=== PATIENT | male | born 1940 | race Caucasian/White ===

== ENCOUNTER → 2024-08-12 08:47 | Outpatient (REF) | payer MEDICARE, BC, SELFPAY | LOC: RAD 08:47 | PROVIDERS: ATTENDING PHYSICIAN Family Medicine | DX: J44.9 Chronic obstructive pulmonary disease, unspecified (principal); R63.4 Abnormal weight loss | CPT/HCPCS: 71046 ==

== ENCOUNTER → 2024-09-29 14:43 | Outpatient (REF) | payer MEDICARE, BC, SELFPAY | LOC: HWRAD 14:43 | PROVIDERS: ATTENDING PHYSICIAN Family Medicine | DX: R10.11 Right upper quadrant pain (principal); R74.8 Abnormal levels of other serum enzymes | CPT/HCPCS: 74177; Q9967 ==

== ENCOUNTER 2024-09-30 19:03 | Inpatient (IN) | payer MEDICARE, BC, SELFPAY ==
[2024-09-30] VITALS (15 sets, daily range): BP systolic 128–156; BP diastolic 75–95; PULSE 4–78; BMI 21.9
[2024-09-30] MEDS: DECADRON 10 MG IV (14:34)
[2024-09-30] MEDS: NSS 500 IV (14:34)
[2024-09-30] MEDS: DUONEB 3 ML INH ×3 (14:34→22:44)
--- NOTE | 2024-09-30 14:52 | ED.GENMED ---
History of Present Illness
General
Chief Complaint: Abdominal Pain
Source: patient
Exam Limitations: none
Time Seen by Provider: 09/30/24 14:05
Nursing documentation reviewed up to this point in time: agreed with
History of Present Illness
History of Present Illness:
84-year-old male past medical history of CAD hyperlipidemia hypertension presenting to the emergency department today with concerns of shortness of breath epigastric pain rating to his back as well as feeling very weak and having blood in his cough
over the past few days. Had an outpatient CT scan due to the upper abdominal pain through his primary care doctor yesterday that showed potential contracted gallbladder though may be due to recent injection. Also had possible groundglass findings
consistent with pneumonia. He denies any specific fevers. He has no some wheezing does of a history of COPD.
Past History
Past History
ED Past Medical History: CAD
ED Past Surgical History: None
Review of Systems
Review of Systems
Allergies reviewed?: Yes
All Other Systems: ROS reviewed and negative except as documented in HPI and ROS
Phy Exam
Physical Exam
Physical Exam:
GENERAL: Alert , in no apparent distress
EYE: pupils equal and reactive
NECK: Supple, no significant adenopathy.
ENT: o/p clr, mmm.
CARDIAC: Regular rate and rhythm .
LUNGS: Diffuse inspiratory and expiratory wheezing
ABDOMEN: Soft, without focal tenderness, no r/g, no cvat
NEUROLOGICAL: Alert and oriented, no focal neuro deficits
SKIN: Warm and dry, skin intact.
MUSCULOSKELETAL: No edema, well perfused.
PSYCH: Normal and appropriate interaction.
Course
Orders/Labs/Results
Orders:
Orders
09/30/24 13:42
EKG [Electrocardiogram (*1)] Urgent
Reason for Study: Shortness of Breath
EKG- Treatment ONCE
09/30/24 14:11
0.9% Sodium Chloride 500 ml [Nss] 500 ml IV BOLUS
Dexamethasone Sod Phosphate [Decadron] 10 mg IV NOW STA
Ipratropium/Albuterol Sulfate [Duoneb] 3 ml INH R NOW STA
09/30/24 14:20
US Abdomen Complete/Upper Urgent
Comment:
Reason For Exam: ruq pain
09/30/24 14:26
Complete Blood Count/With Diff Urgent
Lactic Acid Q4H
Comment: CANCEL 2nd LACTIC ACID IF 1st LACTIC ACID IS LESS THAN 2
09/30/24 14:55
Comprehensive Metabolic Panel Urgent
NT-proBNP Urgent
Troponin I Urgent
09/30/24 14:56
COVID-19 Antigen Urgent
Source: Nasal Swab
Influenza A+B Rapid Molecular Urgent
TELMA Source: Nasal Swab
Specimen Description:
09/30/24 15:43
Chest [CR Chest - 2 Views ] Urgent
Comment:
Reason For Exam: sob
09/30/24 17:01
Azithromycin 500 mg/250 ml [Zithromax Infusion] 500 mg in 250 ml IV NOW
CefTRIAXone [Rocephin] 2,000 mg IV NOW STA
Furosemide [Lasix] 40 mg IV NOW STA
09/30/24 17:06
EKG [Electrocardiogram (*1)] Urgent
Reason for Study: Chest Pain
EKG- Treatment ONCE
09/30/24 17:08
Troponin I Urgent
09/30/24 17:34
Ipratropium/Albuterol Sulfate [Duoneb] 3 ml INH R NOW ONE
09/30/24 17:55
Acetaminophen 1000MG/100Ml [Ofirmev] 1,000 mg in 100 ml IV ONCE
Acetaminophen IV Indication:: No CT & No Enteral Access
Abnormal Lab Results
09/30/24 09/30/24 09/30/24
14:26 14:55 17:08
WBC 16.3 H 10^3/uL
(4.8-10.8)
RBC 3.15 L 10^6/uL
(4.70-6.10)
Hgb 10.6 L g/dL
(13.0-18.0)
Hct 31.0 L %
(39.0-52.0)
MCV 98.4 H fL
(80.0-94.0)
MCH 33.7 H pg
(27.0-31.0)
Abs Immat Gran (auto) 0.2 H 10^3/uL
(0-0.05)
Absolute Neuts (auto) 13.4 H 10^3/uL
(1.4-6.5)
Absolute Monos (auto) 1.1 H 10^3/uL
(0.1-0.6)
Immature Gran % 1.0 H %
(0-0.5)
Neutrophils % 82.1 H %
(42.2-75.2)
Lymphocytes % 8.8 L %
(20.5-51.1)
Sodium 134 L mmol/L
(135-145)
Carbon Dioxide 19 L mmol/L
(22-30)
BUN 69 H mg/dl
(9-20)
Creatinine 2.2 H mg/dL
(0.7-1.3)
Glucose 105 H mg/dl
(70-99)
AST 231 H U/L
(17-59)
ALT 309 H U/L
(0-50)
Alkaline Phosphatase 308 H U/L
(38-126)
Troponin I 0.061 H* ng/ml 0.062 H* ng/ml
Total Protein 5.8 L g/dl
(6.3-8.2)
Albumin 3.2 L g/dl
(3.5-5.0)
09/30/24 14:26
09/30/24 14:55
Vital Signs
Initial and Last Documented VS:
Initial Vital Signs
Temp Pulse Resp BP Pulse Ox
97.5 F 56 18 128/79 94
09/30/24 13:37 09/30/24 13:37 09/30/24 13:37 09/30/24 13:37 09/30/24 13:37
Last Documented Vital Signs
Temp Pulse Resp BP Pulse Ox
98.5 F 77 27 141/84 96
09/30/24 14:41 09/30/24 17:34 09/30/24 17:34 09/30/24 17:34 09/30/24 17:34
MDM/Problems Addressed
MDM/Problems Addressed:
84-year-old male presenting to the emergency department today with concerns of shortness of breath wheezing upper abdominal pain rating to his back with some blood in his cough over the past few days. Saw his primary care doctor yesterday had an
outpatient CT scan of the abdomen pelvis that showed some contraction of the gallbladder. There were also concern of some elevated liver function test and sent him to the ER. Here he does have diffuse inspiratory expiratory wheezing. More
concerning for potential COPD exacerbation. Patient started on steroid and nebulizer. Labs obtained that showed elevated white count of 16.3 chest x-ray performed that showed consolidation to the left side consistent with pneumonia patient started
on ceftriaxone and azithromycin for community-acquired pneumonia. Additionally BNP significantly elevated to greater than 27,000. He had some increased pulmonary vascular markings. Was started on Lasix. Otherwise maintaining saturations in the
mid 90s at rest here. Admitted for further treatment and monitoring.
*Critical Care Note
Total Time (30-74mins, 75-104mins- exclusive of procedures): Not Applicable
ED Attending Note
-
Portions of this chart may have been created with voice recognition software.� Occasional wrong word or��sound alike� substitutions may have occurred due to the inherent limitations of voice recognition software.
Discharge Plan
Departure
Patient Disposition: Admit
Date of Disposition: 09/30/24
Time of Disposition: 17:53
Admit to: IMU
Admit to doctor: Josiane
Presentation/result/management discussed w/ accepting MD/DO: Hospitalist
Patient with high blood pressure during this ER visit?: No
Condition: Fair
Covid-19: Not Applicable
Discharge Problem:
Pneumonia, Acute exacerbation of CHF (congestive heart failure)
Prescriptions:
No Action
acetaminophen 325 mg Tablet
650 mg PO HSPRN PRN (Reason: mild pain )
atorvastatin 20 mg Tablet
20 mg PO DAILY
clopidogrel 75 mg Tablet
75 mg PO DAILY
amlodipine 5 mg Tablet
5 mg PO DAILY
sulfamethoxazole-trimethoprim [Bactrim DS] 800-160 mg Tablet
1 tab PO MOWEFR
calcium carbonate [Calcium 500] 500 mg calcium (1,250 mg) Tablet
500 mg PO DAILY
Referrals:
Christian Gabriel MD [Family Provider] -
Interventions
Interventions:
*Risk Screen - Suicide Last Done: 09/30/24 13:37
*General Assessment Last Done: 09/30/24 14:41
*Neglect/Abuse Screening Last Done: 09/30/24 14:41
ED- Fall Risk Assessment Last Done: 09/30/24 14:41
*ED COVID-19 Vaccine History Last Done: 09/30/24 14:41
GK-Ifhshm-Rcirtenjwa Assessment Last Done: 09/30/24 14:41
Discharge Date and Time
Print Language: DANISH
[2024-09-30 15:07] LABS: Lactic Acid 1.3 mmol/L (0.7-2.0)
[2024-09-30 15:14] LABS: % Basophils 0.3 % (0-2); % Eosinophils 1.1 % (0-6); % Lymphocytes 8.8 % (20.5-51.1); % Monocytes 6.7 % (1.7-9.3); % Neutrophils 82.1 % (42.2-75.2); Absolute Basophils 0.1 10^3/uL (0-0.2); Absolute Eosinophils 0.2 10^3/uL (0-0.7); Absolute Immature Granulocytes 0.2 10^3/uL (0-0.05); Absolute Lymphocytes 1.4 10^3/uL (1.2-3.4); Absolute Monocytes 1.1 10^3/uL (0.1-0.6); Absolute Neutrophils 13.4 10^3/uL (1.4-6.5); Hemoglobin 10.6 g/dL (13.0-18.0); Mean Corp Hgb Conc. 34.2 g/dL (33.0-37.0); Mean Corpuscular Hgb 33.7 pg (27.0-31.0); Mean Corpuscular Volume 98.4 fL (80.0-94.0); Mean Platelet Volume 10.3 fL (7.4-10.4); Nucleated Red Blood Cells % 0 % (-); Platelet Count 258 10^3/uL (130-400); Red Blood Cell Count 3.15 10^6/uL (4.70-6.10); Red Cell Dist. Width 13.3 % (11.5-14.5); White Blood Cell Count 16.3 10^3/uL (4.8-10.8)
--- NOTE | 2024-09-30 15:19 | EDRN ---
this RN noticed that the pts Sp02 on 2L NC was 92%, this RN titrated 02 up to 4L NC and notified the provider, Sp02 now 96%, will continue to monitor the pt closely
[2024-09-30 15:25] LABS: ALT (SGPT) 309 U/L (0-50); AST (SGOT) 231 U/L (17-59); Albumin 3.2 g/dl (3.5-5.0); Alkaline Phosphatase 308 U/L (38-126); Blood Urea Nitrogen 69 mg/dl (9-20); Calcium 8.8 mg/dl (8.4-10.2); Carbon Dioxide 19 mmol/L (22-30); Chloride 101 mmol/L (98-107); Estimated Creatinine Clearance 22 ml/min; Glucose 105 mg/dl (70-99); Potassium 4.5 mmol/L (3.5-5.1); Sodium 134 mmol/L (135-145); Total Bilirubin 1.2 mg/dl (0.2-1.3); Total Protein 5.8 g/dl (6.3-8.2); eGFR 28.81
[2024-09-30 15:26] LABS: COVID-19 Antigen Negative (Negative)
[2024-09-30 15:35] LABS: NT-proBNP > 27000 pg/ml; Troponin I 0.061 ng/ml
--- NOTE | 2024-09-30 15:36 | EDRN ---
Troponin came back elevated, provider notified
[2024-09-30] MEDS: LASIX 40 MG IV (17:11)
[2024-09-30] MEDS: ROCEPHIN 2000 MG IV (17:12)
[2024-09-30] MEDS: ZITHROMAX INFUSION 250 IV (17:12)
[2024-09-30 17:48] LABS: Troponin I 0.062 ng/ml
[2024-09-30] MEDS: OFIRMEV 100 IV (18:00)
--- NOTE | 2024-09-30 18:03 | HPS.HSE ---
Family Physician
-
Family Physician: Christian Gabriel
Chief Complaint
-
shortness of breath
History of Present Illness
84 y/o male with SOB and cough. Also bloody sputum . Patient also had upper abdominal pain had a CT as outpatient which showed contracted gallbladder and also findings consistent with pneumonia.
Medical History
Past Medical History
Past Medical History: Reports Other
Additional Past Medical History:
Coronary artery disease, hyperlipidemia, hypertension, PVD
Past Surgical History: Reports Other
Additional Past Surgical History:
CABG
Social History
Tobacco: Smoker
Alcohol: None
Drug: None
Personal:
Living: With Family
Family History
Family History: Not pertinent
Allergies / Home Medications
Allergies reflects when Allergies were last updated in [facility].
Home Medications with original date entered in [facility]
Allergy/Medication List:
Allergies
Allergy/AdvReac Type Severity Reaction Status Date / Time
No Known Allergies Allergy Verified 09/30/24 13:37
Home Medications
acetaminophen 325 mg tablet 650 mg PO HSPRN PRN mild pain 09/30/24
amlodipine 5 mg tablet 5 mg PO DAILY Blood Pressure 09/30/24
atorvastatin 20 mg tablet 20 mg PO DAILY High Cholesterol 09/30/24
calcium carbonate 500 mg PO DAILY Supplement 09/30/24
clopidogrel 75 mg tablet 75 mg PO DAILY Blood Clot Prevention/Tx 09/30/24
sulfamethoxazole 800 mg-trimethoprim 160 mg tablet (Bactrim DS) 1 tab PO MOWEFR infection prophylaxis 09/30/24
Review of Systems
-
A 12 point ROS was completed and negative except as noted: Yes
Respiratory: Reports Cough and Trouble Breathing
Abdomen/GI: Reports Abdominal Pain and Nausea
Physical Exam
Vital Signs
Vital Signs
Temp Pulse Resp BP Pulse Ox
98.5 F 77 27 141/84 96
09/30/24 14:41 09/30/24 17:34 09/30/24 17:34 09/30/24 17:34 09/30/24 17:34
Physical Exam
General: Respiratory Distress
Respiratory: Wheezes
Cardiac: S1/S2 and Regular Rhythm
GI: Soft, Non Tender and Normal Bowel Sounds
Neuro: Awake, Alert and Nonfocal/grossly intact
Psych: Intact Judgment/Insight
Laboratory Results
-
09/30/24 14:26
09/30/24 14:55
Laboratory Results
Lactic Acid Cancelled 09/30/24 18:15
Total Bilirubin 1.2 mg/dl (0.2-1.3) 09/30/24 14:55
AST 231 U/L (17-59) H 09/30/24 14:55
ALT 309 U/L (0-50) H 09/30/24 14:55
Alkaline Phosphatase 308 U/L (38-126) H 09/30/24 14:55
Troponin I 0.062 ng/ml H* 09/30/24 17:08
Data Reviewed
-
Medical Tests (Nuc Med, Echo, EKG etc): Image Personally Visualized and interpreted (Sinus rhythm with sinus arrhythmia. Nonspecific ST-T changes. QTc 474.)
Impression/Plan
-
IMPRESSION/PLAN:
CT scan of the abdomen and pelvis with IV contrast 09/29/2024-contracted gallbladder with wall enhancement could be due to recent ingestion. Pathology cannot be excluded. Moderate right and small left pleural effusion. Moderate bibasilar and
lingular groundglass densities concerning for pneumonia. ILD not excluded. Findings suggesting bilateral benign adrenal hyperplasia. Bilateral renal cyst. Complex cyst left kidney outpatient MRI recommended. Moderate atherosclerotic vascular
disease. Tortuous abdominal aorta. Bilobed infrarenal AAA 4.1 cm. Diverticulosis. Large Bowel containing left scrotal hernia. Mild prostatic hypertrophy.
09/30/2024-ultrasound of the abdomen-mild gallbladder wall thickening secondary to gallbladder contraction. No evidence of cholelithiasis or bile duct dilatation. Bilateral renal cyst.
Chest x-ray reviewed by me-left lung pneumonia
# Acute hypoxic respiratory failure
Multifactorial
Pneumonia/acute CHF/acute bronchitis/COPD exacerbation
Admit to stepdown
Sputum culture
Speech evaluation
Possible CHF with elevated proBNP, got a dose of Lasix. More Lasix in the morning after evaluation of BMP
Get echo
Mildly elevated troponin-follow
COVID serology negative
Will treat with IV steroids
Zosyn and Zithromax
Smoking cessation counseling
Aspiration precautions
Mucolytic's
# Epigastric pain with elevated LFTs-check HIDA scan. n.p.o. . Surgery consultation according to the HIDA scan tomorrow . Zosyn. Hepatic congestion also needs to be considered and ruled out.
# Acute kidney injury on CKD stage III-possible cardiorenal. Check echo. Hold Bactrim follow creatinine. Bladder scan with large prostate.
# Coronary artery disease-H/O CABG Hold Plavix, statin
# Hypertension-Hold amlodipine
# Anemia-check iron studies
# Hyperlipidemia/atherosclerosis-Hold atorvastatin
# Peripheral vascular disease with low ABIs, 100% left common carotid artery occlusion 100% left internal carotid artery occlusion-continue Plavix and statin
# Renal cyst-outpatient MRI
# 4.1 cm infrarenal AAA
# Diverticulosis
# Enlarged prostate-watch for an retention. Bladder scan
# Active smoker-cessation counseling
# Large bowel containing left scrotal hernia
# DVT prophylaxis-BEVERLEY
# CODE STATUS-DNR per D/W and daughter .
Discussed with respiratory therapy at bedside
Discussed with ER
Spoke to and daughter on the phone and updated. Reviewed that patient is very sick with multiple medical problems. CODE STATUS addressed and they both confirmed DNR status.
Time spent over 75 min
--- NOTE | 2024-09-30 18:08 | EDRN ---
Ofirmev IV hung and running for the patient per their request for pain, Ed Aroldo KONG at the pts bedside discussing with the pt and the pts family why the provider, Kevin KONG does not want to give the pt IV narcotics, per the provider respiratory
was called to place the pt on Bipap for increases WOB
--- NOTE | 2024-09-30 18:21 | EDRN ---
respiratory currently at the pts bedside placing the pt on Bipap, hospitalist currently at the pts bedside as well
--- NOTE | 2024-09-30 18:33 | EDRN ---
the pt is currently on Bipap 25/03 8L Sp02 94%
[2024-09-30 19:37] LABS: Vitamin B12 912 pg/ml (239-931)
[2024-09-30] MEDS: DILAUDID 0.25 MG IV (21:29)
[2024-09-30] MEDS: PULMICORT 0.5 MG INH (22:44)
[2024-09-30] MEDS: DECADRON 4 MG IV (22:45)
[2024-09-30] MEDS: MUCINEX 600 MG PO (22:45)
[2024-09-30] MEDS: HEPARIN 5000 UNITS SC (23:34)
[2024-09-30] MEDS: ZOSYN 50 IV (23:34)
[2024-10-01] VITALS (15 sets, daily range): BP systolic 104–143; BP diastolic 61–90; PULSE 4–77; BMI 22.8
[2024-10-01 00:48] LABS: Troponin I 0.067 ng/ml
--- NOTE | 2024-10-01 01:54 | PTCARENOTE ---
New afib overnight, controlled in 70's. confirmed with ekg. Cardiology already consulted. BALANCE ASSEMBLER aware.
--- NOTE | 2024-10-01 01:55 | PTCARENOTE ---
Admitted pt overnight. aaox3 but forgetful & NEWTOK. and family at bedside during admission. SR/SA and new afib overnight, high pvc's. Denies CP. Arrived on bipap and continues to be on it overnight. Bedrest. Large inguinal hernia. Trops have not
peaked yet. Denies any pain in abdomen/back like he previously stated in ed. no other issues, will continue to monitor.
[2024-10-01] MEDS: DECADRON 4 MG IV ×3 (05:41→21:00)
[2024-10-01] MEDS: ZOSYN 50 IV ×4 (05:41→23:26)
[2024-10-01 06:19] LABS: Hematocrit 30.1 % (39.0-52.0); Hemoglobin 10.6 g/dL (13.0-18.0); Mean Corp Hgb Conc. 35.2 g/dL (33.0-37.0); Mean Corpuscular Hgb 33.7 pg (27.0-31.0); Mean Corpuscular Volume 95.6 fL (80.0-94.0); Mean Platelet Volume 10.7 fL (7.4-10.4); Platelet Count 249 10^3/uL (130-400); Red Blood Cell Count 3.15 10^6/uL (4.70-6.10); Red Cell Dist. Width 13.1 % (11.5-14.5); White Blood Cell Count 12.9 10^3/uL (4.8-10.8)
[2024-10-01 06:33] LABS: ALT (SGPT) 242 U/L (0-50); AST (SGOT) 111 U/L (17-59); Albumin 2.9 g/dl (3.5-5.0); Alkaline Phosphatase 276 U/L (38-126); Blood Urea Nitrogen 68 mg/dl (9-20); Calcium 8.3 mg/dl (8.4-10.2); Carbon Dioxide 16 mmol/L (22-30); Chloride 106 mmol/L (98-107); Direct Bilirubin 0.5 mg/dl (0.0-0.4); Estimated Creatinine Clearance 21 ml/min; Glucose 112 mg/dl (70-99); Iron 60 ug/dl (49-181); Magnesium 2.2 mg/dl (1.6-2.3); Potassium 4.4 mmol/L (3.5-5.1); Sodium 139 mmol/L (135-145); Total Bilirubin 0.8 mg/dl (0.2-1.3); Total Protein 5.5 g/dl (6.3-8.2); eGFR 25.96
[2024-10-01 06:42] LABS: Percent Saturation 43 % (20-50); Total Iron Binding Capacity 139 ug/dl (261-462)
[2024-10-01 06:49] LABS: Troponin I 0.059 ng/ml
[2024-10-01 07:03] LABS: TSH Reflex To Free T4 0.63 uIU/ml (0.47-4.68)
[2024-10-01] MEDS: HEPARIN 5000 UNITS SC ×3 (07:30→23:27)
[2024-10-01] MEDS: DUONEB 3 ML INH ×4 (07:36→19:42)
[2024-10-01] MEDS: PULMICORT 0.5 MG INH ×2 (07:36→19:42)
--- NOTE | 2024-10-01 08:55 | W.PN.HOSP.TC ---
Today's Communication/Plan
-
HIDA scan
Echo
Continue antibiotics
Continue steroids
Will decide on Lasix once echo is done
Oxygen support
Smoking cessation counseling
Aspiration precautions
Speech eval
Assessment / Plan
Assessment / Plan
CT scan of the abdomen and pelvis with IV contrast 09/29/2024-contracted gallbladder with wall enhancement could be due to recent ingestion. Pathology cannot be excluded. Moderate right and small left pleural effusion. Moderate bibasilar and
lingular groundglass densities concerning for pneumonia. ILD not excluded. Findings suggesting bilateral benign adrenal hyperplasia. Bilateral renal cyst. Complex cyst left kidney outpatient MRI recommended. Moderate atherosclerotic vascular
disease. Tortuous abdominal aorta. Bilobed infrarenal AAA 4.1 cm. Diverticulosis. Large Bowel containing left scrotal hernia. Mild prostatic hypertrophy.
09/30/2024-ultrasound of the abdomen-mild gallbladder wall thickening secondary to gallbladder contraction. No evidence of cholelithiasis or bile duct dilatation. Bilateral renal cyst.
Chest x-ray reviewed by me-left lung pneumonia
Feeling better.
CVS: S1-S2 irregular
Chest: B/L wheezes
Abdomen: Soft, No RUQ [id number] now, Bowel sounds present
Extremities: No edema
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
# Acute hypoxic respiratory failure
Multifactorial
Off BIPAP this am- on 3 L NC O2
1)Pneumonia- NOS- Aspiration vs CAP
Sputum culture
Speech evaluation
2) Acute CHF (Type unknown)with elevated proBNP, got a dose of Lasix. More Lasix in the morning after evaluation of BMP
Get echo
Mildly elevated troponin-follow
GDMT after ECHO when able to
Daily weights. Intake output charting
Cards eval
3)Acute bronchitis/COPD exacerbation
COVID serology negative
Will treat with IV steroids
Zosyn and Zithromax
Smoking cessation counseling
Aspiration precautions
Mucolytic's
Pulm eval
# Arrhythmias . ? Afib- Cards eval.
# Epigastric pain with elevated LFTs-check HIDA scan. n.p.o. . Surgery consultation according to the HIDA scan tomorrow . Zosyn. Hepatic congestion also needs to be considered and ruled out. Hold Plavix in case he needs surgery, restart once
decided. Use ASA instead for now
# Acute kidney injury on CKD stage III-possible cardiorenal. Check echo. Hold Bactrim follow creatinine. Bladder scan with large prostate.
# Coronary artery disease-H/O CABG Hold Plavix, continue statin. Hold Plavix in case he needs surgery, restart once decided. Use ASA instead for now
# Hypertension-Hold amlodipine
# Anemia- No BERT
# Hyperlipidemia/atherosclerosis-Hold atorvastatin
# Peripheral vascular disease with low ABIs, 100% left common carotid artery occlusion 100% left internal carotid artery occlusion-continue statin.Hold Plavix in case he needs surgery, restart once decided. Use ASA instead for now
# Renal cyst-outpatient MRI
# 4.1 cm infrarenal AAA ( Son awre)
# Diverticulosis
# Enlarged prostate-watch for any retention. Bladder scan ordered
# Active smoker-cessation counseling
# Hypoalbuminemia
# Large bowel containing left scrotal hernia
# DVT prophylaxis-BEVERLEY
# CODE STATUS-DNR per D/W and daughter .
Discussed with RN at bedside
D/W Son and updated.
time spent 54 min
Anticipated Discharge: > 48 hours
Subjective/Interval History
-
Date of Service: October 01, 2024
Objective Data
-
Labs:
Laboratory Results
10/01/24
06:08
WBC 12.9 H
Hgb 10.6 L
Hct 30.1 L
Plt Count 249
Sodium 139
Potassium 4.4
Chloride 106
Carbon Dioxide 16 L
BUN 68 H
Creatinine 2.4 H
Glucose 112 H
Calcium 8.3 L
Total Bilirubin 0.8
AST 111 H
ALT 242 H
Alkaline Phosphatase 276 H
Vital Signs:
Vital Signs
Temp Pulse Resp BP Pulse Ox
97.5 F 77 19 120/80 95
10/01/24 04:52 10/01/24 08:00 10/01/24 08:00 10/01/24 06:00 10/01/24 08:00
I&O
09/30/24 10/01/24 10/02/24
06:59 06:59 06:59
Output Total 100 / 100
Balance -100 / -100
--- NOTE | 2024-10-01 09:47 | CON.CAR ---
Consultation
Consultation Request
Date/Time Consultation Requested: Sep 30 2024
Date/Time Consultation Performed: Oct 01 2024
Requesting Provider: Hospitalist
Performing Provider: Arvind Langley
Reason for Consultation: HF
Medical History
-
Chief Complaint: RUQ pain
History of Present Illness:
84-year-old male with past medical history of CAD s.p CABG, peripheral arterial disease, dyslipidemia, and hypertension who is here for right upper quadrant pain. He tells me that over the last couple days he has had significant right upper
quadrant pain that eventually caused him to come to the emergency room. Additionally, he has had some mild shortness of breath and was found to be hypoxic requiring BiPAP in the emergency room. He was given some IV Lasix and has diuresed well. We
are being consulted for concern for heart failure. He did have a CT scan as an outpatient and was found to have contracted gallbladder as well as pneumonia. He also has elevated LFTs and his creatinine is elevated.
Past Medical History
Past Medical History: Other (PAD HTN Dyslipidemia CAD)
Past Surgical History: Other (cabg)
Social History
Tobacco: Smoker
Personal:
Living: With Family
Employment: Retired
Family History
Family History: Reviewed & Not Pertinent
Allergies / Home Medications
Allergy/AdvReac Type Severity Reaction Status Date / Time
No Known Allergies Allergy Verified 09/30/24 13:37
�Medication �Instructions �Recorded �Confirmed �Type
acetaminophen 325 mg tablet 650 mg PO HSPRN PRN mild pain 09/30/24 09/30/24 History
amlodipine 5 mg tablet 5 mg PO DAILY Blood Pressure 09/30/24 09/30/24 History
atorvastatin 20 mg tablet 20 mg PO DAILY High Cholesterol 09/30/24 09/30/24 History
calcium carbonate 500 mg PO DAILY Supplement 09/30/24 09/30/24 History
clopidogrel 75 mg tablet 75 mg PO DAILY Blood Clot 09/30/24 09/30/24 History
Prevention/Tx
sulfamethoxazole 800 1 tab PO MOWEFR infection 09/30/24 09/30/24 History
mg-trimethoprim 160 mg tablet prophylaxis
(Bactrim DS)
Review of Systems
-
All other systems: Negative unless noted
Physical Exam
Vital Signs
Temp Pulse Resp BP Pulse Ox
97.5 F 77 19 120/80 95
10/01/24 04:52 10/01/24 08:00 10/01/24 08:00 10/01/24 06:00 10/01/24 08:00
Lab Results
10/01/24 06:08
10/01/24 06:08
Troponin I 0.059 ng/ml H* 10/01/24 06:08
Hsp-W-Znthjrkqvty Pept > 92127 pg/ml 09/30/24 14:55
Physical Exam
General: No Apparent Distress and Comfortable
HEENT: Normocephalic
Respiratory: Wheezes and Crackles
Cardiac: Regular Rhythm
GI: Soft
Musculoskeletal: Edema (trace)
Skin: Warm and Dry
Neuro: AO x 3
Psych: Calm
Impression / Plan
-
84-year-old male with past medical history of CAD status post CABG, dyslipidemia, hypertension, peripheral arterial disease who is here with concern for possible cholecystitis and pneumonia/heart failure. He does not appear overtly volume
overloaded. He likely could use 1 more dose of diuretic.
Dr Avila patient.
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
-1 dose IV Lasix today
-Update echocardiogram
-GDMT likely limited by kidney function we will wait until echocardiogram is completed
CAD s.p CABG Elevated troponin
- likely nonischemic myocardial injury stop trending
- cont statin, holding plavix possible procedure
HTN
- stable
Dyslipidemia
- cont statin
PNA w/ hypoxic respiratory failure
- per primary
Elevated LFTs
- HIDA scan
PAD
- holding plavix
Smoker
- encouraged cessation
Data Reviewed
-
EKG: Tracing Personally Visualized and interpreted (sr)
Medical Tests (Nuc Med, Echo etc): Report Reviewed by me
Labs: Labs Reviewed by me
--- NOTE | 2024-10-01 10:51 | PTCARENOTE ---
1037 HIDA SCAN pre-medication vital signs 97.6, 81, 20 Bp 139/84. Morphine 2mg IV given as per order at 1040. Post-medication vital signs at 1042 HR 76, RR 19, Bp 138/80. Patient denies complaints.
--- NOTE | 2024-10-01 11:06 | CON.PUL ---
Consultation
Consultation Request
Date/Time Consultation Requested: 10/01/24
Date/Time Consultation Performed: 10/01/24
Performing Provider: Edgardo
Reason for Consultation: Hypoxia
Medical History
-
History of Present Illness:
Patient is an 84-year-old male with past medical history of CAD, HTN, HLD presenting to ER with shortness of breath, cough w/ bloody sputum, epigastric pain rating to his back and weakness over the past several days. Had an outpatient CT scan
with suspected contracted gallbladder, ground glass opacities suggesting pneumonia. On arrival to ER, noted to have WBC 16.3, creat 2.4, proBNP >27,000. Admitted for CHF exacerbation, with potential comorbid PNA.
Was never told in the past he has lung disease. Current smoker, up to 1PPD since he was 11 years old. Has cut down to 1/2 PPD. Denies history of lung disease in family.
Never seen by manager e learning in past.
Past Medical History
Past Medical History: Other (see list below)
Social History
Tobacco: Smoker
Alcohol: None
Drug: None
Family History
Family History: Reviewed & Not Pertinent
Allergies / Home Medications
Allergies
Allergy/AdvReac Type Severity Reaction Status Date / Time
No Known Allergies Allergy Verified 09/30/24 13:37
Home Medications
�Medication �Instructions �Recorded �Confirmed �Last Taken �Type
acetaminophen 325 mg tablet 650 mg PO HSPRN PRN mild pain 09/30/24 09/30/24 09/29/24 History
amlodipine 5 mg tablet 5 mg PO DAILY Blood Pressure 09/30/24 09/30/24 09/30/24 History
atorvastatin 20 mg tablet 20 mg PO DAILY High Cholesterol 09/30/24 09/30/24 09/30/24 History
calcium carbonate 500 mg PO DAILY Supplement 09/30/24 09/30/24 09/29/24 History
clopidogrel 75 mg tablet 75 mg PO DAILY Blood Clot 09/30/24 09/30/24 09/30/24 History
Prevention/Tx
sulfamethoxazole 800 1 tab PO MOWEFR infection 09/30/24 09/30/24 09/29/24 History
mg-trimethoprim 160 mg tablet prophylaxis
(Bactrim DS)
Review of Systems
-
History Source: Patient
All other systems: Negative unless noted
Vitals / Labs / Diagnostic Testing
Vital Signs
Temp Pulse Resp BP Pulse Ox
97.5 F 76 18 138/80 96
10/01/24 04:52 10/01/24 10:45 10/01/24 10:45 10/01/24 10:45 10/01/24 10:45
Lab Data
10/01/24 06:08
10/01/24 06:08
Microbiology
09/30/24 14:56 Nasal Swab Influenza Types A & B (KEZIA) - Final
Negative for Influenza A & B, NAAT
Negative results must be combined with clinical observations
and patient history.
Nucleic Acid Amplification test (NAAT)performed on the
[employer] platform.
Diagnostic Testing:
Physical Exam
-
HEENT: Normocephalic, Anicteric and Moist Mucous Membranes
Cardiovascular: S1/S2 and Regular Rhythm
Respiratory: Wheeze (minimal, overall diminished lung sounds) and Non-Labored Respirations
GI: Soft, Non Distended and Non Tender
Neurology: Awake, Alert, Oriented (to self, somewhat confused on conversation) and No Motor Deficits
Skin: Warm, Dry and Good Color
General: Comfortable and Other (NAD)
Assessment
-
Patient is an 84-year-old male with past medical history of CAD, HTN, HLD presenting to ER with shortness of breath, cough w/ bloody sputum, epigastric pain rating to his back and weakness over the past several days. Had an outpatient CT scan
with suspected contracted gallbladder, ground glass opacities suggesting pneumonia. On arrival to ER, noted to have WBC 16.3, creat 2.4, proBNP >27,000. Admitted for CHF exacerbation, with potential comorbid PNA. We are consulted for eval.
Acute hypoxic resp insufficiency, on 2L, 85% on RA
Acute HFrEF, proBNP >05589
Possible superimposed PNA
GGOs on CT, pleural effusions
Leukocytosis
ALEXA, creat 2.4
Metabolic acidosis
Pulmonary nodules
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
Coronary artery disease s/p CABG x 5
Hyperlipidemia
Hypertension
PVD/PAD w/ claudication - MAGNUS 0.72.
Occluded right SFA proximally/reconstitution of popliteal artery.
Left MAGNUS 0.41 with TBI of 0.28.
Occluded left distal external iliac artery, left SFA proximal occlusion, popliteal artery occlusion.
Follows with Dr Lynch
COPD/mucopurulent chronic bronchitis
Recurrent UTI
CKD 3
Bilateral recurrent inguinal hernia
Plan
Hypoxemia noted on arrival, placed on 2L NC
He has never had O2 at home in past
Home O2 evaluation eventually
Prior history of lung disease is not noted--Was never told in the past he has lung disease.
Current smoker, up to 1PPD since he was 11 years old. Has cut down to 1/2 PPD.
Denies history of lung disease in family.
Never seen by manager e learning in past.
Has a h/o COPD in his chart, but no prior PFTs
Suspect patient has CHF given proBNP >10522
CXR/CT obtained indicating GGOs likely more edema, CT AP with effusions
This is less so PNA, but can check procal/sputum culture
Other imaging reviewed
Prior ECHO results are reviewed indicating reduced EF 45-50% in 2016
Repeat ECHO pending
Check VBG as well--he has metabolic acidosis, O2 sat on venous can give an indication regarding decreased CO
(Low SvO2 may indicate low CO)
Cards eval obtained, pending w/u
Diuresis per team, this is limited due to kidney function
COPD is suspected, no prior PFTs for review
Will obtain bedside PFT, can start inhaler therapy if indicated
No wheezing noted, but he is placed on IV steroids
This would be rapidly tapered
Smoking history noted
Smoking cessation encouraged
He will not qualify for yearly screening based on his age
Prior CT AP showing calcified pulmonary nodules, may eventually need dedicated CT Chest
Will need outpatient pulmonary evaluation in our office for PFTs and 6MWT
Reviewed with patient
We will follow
Diagnostic Data
Chest X-Ray: 09/30/24- Pneumonia in the left lung. Radiographic follow-up to resolution is recommended. Mild pulmonary vascular congestion with trace bilateral pleural fluid and cardiomegaly.
CT Scan: AP 09/29/24- Lung Bases: There is a moderate right pleural effusion. There is a small pleural effusion. There are moderate groundglass densities in both lower lobes, left greater than right and mildly in the lingula. There are calcified
nodules in the right middle lobe consistent with prior benign granulomatous disease
Echo: 02/15/16- Mildly reduced left ventricular systolic function. Left ventricular ejection fraction is 45-50%. Mild mitral regurgitation. Mild tricuspid regurgitation. Compared to prior study on 02/15/14 the LV EF has improved from 40%.
PFT's:
Reports and relevant images were personally reviewed.
Total time spent on this consultation __75__ minutes which includes review of history, physical exam, medications, laboratory data, personal review of imaging, extensive review of outpatient records, discussion with care team and respiratory therapy.
[2024-10-01] MEDS: LASIX 40 MG IV (12:30)
[2024-10-01] MEDS: DESENEX/MITRAZOL/ZEASORB 1 APPLIC TOPICAL ×2 (13:13→20:56)
[2024-10-01] MEDS: ASPIR LOW (ENTERIC COATED) 81 MG PO (13:13)
[2024-10-01] MEDS: MUCINEX PO (13:13)
[2024-10-01] MEDS: NICODERM TRANSDERMAL 14 MG TRANSDERM (16:09)
[2024-10-01] MEDS: ZITHROMAX INFUSION 250 IV (16:10)
[2024-10-01 17:41] LABS: Venous Blood Gas B.E. -7.8 mmol/L (-4 to +4); Venous Blood Gas HCO3 15.5 mmol/L (22-27); Venous Blood Gas O2 Sat % 99.5 %; Venous Blood Gas pCO2 25 mmHg (35-48); Venous Blood Gas pO2 108 mmHg (30-50)
[2024-10-01 18:12] LABS: Procalcitonin 0.35 ng/ml (0.0-0.25)
--- NOTE | 2024-10-01 19:52 | PTCARENOTE ---
see nursing shift assessment this am. afib with pvcs on monitor with rate controlled. pt npo x sips. hida scan completed this am. sats maintained in 90s on 3 liters o2. pt reports breathing feeels better than last night. occasional cough and some
shortness of breath on exertion noted. order obtained for nicotine patch. iv antibiotics and lasix administered per order.
[2024-10-01] MEDS: MUCINEX 600 MG PO (20:57)
[2024-10-01] MEDS: FLUSH (NSS) 2 FLUSH IV (21:00)
--- NOTE | 2024-10-01 22:25 | PTCARENOTE ---
Pt received at beginning of shift resting in bed. AAOx3. Tender to RUQ. Denies need for pain med at this time. VSS. POX 95% on 3L NC. Afebrile. Afib/PVC's on CM. Rest of assessment as documented. Call bates within reach. Will continue to monitor.
[2024-10-02] VITALS (13 sets, daily range): BP systolic 122–144; BP diastolic 60–108; PULSE 4–78; BMI 22.7
--- NOTE | 2024-10-02 01:09 | PTCARENOTE ---
Pt observed with BIPAP pulled apart and off. Also observed sitting at side of bed leaning over as if trying to spanish moss picker something off the floor. Mask put back together and replaced on pt. RT Don TT'd and made aware and on his way to assess BIPAP
mask. Bed alarm placed on and working. Pt used urinal for 100ml urine. Currently resting comfortable. Call bates remain within reach. Will continue to monitor.
[2024-10-02 05:11] LABS: Blood Urea Nitrogen 77 mg/dl (9-20); Calcium 8.2 mg/dl (8.4-10.2); Carbon Dioxide 15 mmol/L (22-30); Chloride 105 mmol/L (98-107); Estimated Creatinine Clearance 19 ml/min; Glucose 128 mg/dl (70-99); Sodium 138 mmol/L (135-145); eGFR 22.53
[2024-10-02] MEDS: ZOSYN 50 IV ×3 (05:41→18:45)
[2024-10-02] MEDS: DECADRON 4 MG IV ×2 (05:41→14:14)
[2024-10-02] MEDS: FLUSH (NSS) 3 FLUSH IV (05:42)
[2024-10-02] MEDS: DUONEB 3 ML INH ×4 (07:11→18:14)
[2024-10-02] MEDS: PULMICORT 0.5 MG INH ×2 (07:11→18:13)
[2024-10-02] MEDS: DESENEX/MITRAZOL/ZEASORB 1 APPLIC TOPICAL ×2 (08:31→20:05)
[2024-10-02] MEDS: ASPIR LOW (ENTERIC COATED) 81 MG PO (08:32)
[2024-10-02] MEDS: MUCINEX 600 MG PO ×2 (08:32→20:05)
[2024-10-02] MEDS: HEPARIN 5000 UNITS SC ×2 (08:32→16:53)
[2024-10-02] MEDS: NICODERM TRANSDERMAL 14 MG TRANSDERM (08:33)
--- NOTE | 2024-10-02 10:17 | PTOTSP ---
Speech therapy
Presentation: Patient was oriented, alert, and speech appeared to be WNL during conversation with BALLET PROFESSOR.
Swallowing Function: Patient was observed with several bites of cracker and puree in addition to several cup sips of thin liquids. Patient appeared to tolerate all presentations as he did not exhibit any overt clinical s/sx of aspiration or
difficulty with mastication/ manipulation.
Complaints: Patient stated that he has experienced abdominal pain after eating certain foods. Patient also reports loss of appetite and taste of PO.
Recommendations:
1) Regular consistency solids and thin liquids; pending MD approval
2) Aspiration precautions
3) Medications as tolerated
Plan: BALLET PROFESSOR will continue to follow; pending hospitalization.
--- NOTE | 2024-10-02 12:05 | W.PN.PUL.V3 ---
Today's Communication / Plan
-
Wean oxygen
Assess discharge supplemental oxygen needs
Decrease steroids
Empiric antibiotics
Spirometry with moderate obstruction-COPD
Diuresis as tolerated
Assessment
-
Patient is an 84-year-old male with past medical history of CAD, HTN, HLD presenting to ER with shortness of breath, cough w/ bloody sputum, epigastric pain rating to his back and weakness over the past several days. Had an outpatient CT scan
with suspected contracted gallbladder, ground glass opacities suggesting pneumonia. On arrival to ER, noted to have WBC 16.3, creat 2.4, proBNP >27,000. Admitted for CHF exacerbation, with potential comorbid PNA. We are consulted for eval.
Acute hypoxic resp insufficiency, on 2L, 85% on RA
COPD-FEV1 1.45-58%
Acute HFrEF, proBNP >44923
Possible superimposed PNA
GGOs on CT, pleural effusions
Leukocytosis
ALEXA, creat 2.4
Metabolic acidosis
Pulmonary nodules
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
Coronary artery disease s/p CABG x 5
Hyperlipidemia
Hypertension
PVD/PAD w/ claudication - MAGNUS 0.72.
Occluded right SFA proximally/reconstitution of popliteal artery.
Left MAGNUS 0.41 with TBI of 0.28.
Occluded left distal external iliac artery, left SFA proximal occlusion, popliteal artery occlusion.
Follows with Dr Lynch
COPD/mucopurulent chronic bronchitis
Recurrent UTI
CKD 3
Bilateral recurrent inguinal hernia
Plan
Decompensation a combination of CHF, pneumonia, and COPD
Respiratory status about the same
Supplemental oxygen as needed-currently on 3 L
Evaluate for home oxygen-has COPD
Mucolytic's-on Mucinex
DuoNebs and Pulmicort nebulizers
Decadron-fairly rapid taper
Aspiration precautions
Speech therapy evaluation
Prior history of lung disease is not noted--Was never told in the past he has lung disease.
Current smoker, up to 1PPD since he was 11 years old. Has cut down to 1/2 PPD.
Denies history of lung disease in family.
Never seen by gore seamer in past.
Has a h/o COPD in his chart, but no prior PFTs
Spirometry 10/02/2024-FEV1 1.45 L - 58%, no significant BD response
Check cultures
Unable to produce sputum
Empiric antibiotics-on Zosyn
HIDA scan 10/01/2024-no evidence for cystic duct or common bile duct obstruction
CHF also suspected given proBNP >27893
CXR/CT obtained indicating GGOs likely more edema, CT AP with effusions
This is less so PNA, but can check procal/sputum culture
Other imaging reviewed
Diuresis as tolerated
Monitor renal function, electrolytes, intake/output, lower extremity edema and weight
Replace electrolytes as needed
Echocardiogram 10/01/2024-EF 35-40%, moderate mitral regurgitation-reduced EF from 2016-EF was 45-50%
Cardiology consultation noted-correspondence reviewed
Smoking cessation counseling ongoing
Nicotine patch
DVT prophylaxis-on heparin
Nutrition
Early mobilization
Outpatient pulm evaluation-PFTs, 6-minute walk test, smoking cessation counseling lung cancer screening
Reviewed with nursing as well as son at the bedside
Diagnostic Data
Chest X-Ray: 09/30/24- Pneumonia in the left lung. Radiographic follow-up to resolution is recommended. Mild pulmonary vascular congestion with trace bilateral pleural fluid and cardiomegaly.
CT Scan: AP 09/29/24- Lung Bases: There is a moderate right pleural effusion. There is a small pleural effusion. There are moderate groundglass densities in both lower lobes, left greater than right and mildly in the lingula. There are calcified
nodules in the right middle lobe consistent with prior benign granulomatous disease
Echo: 02/15/16- Mildly reduced left ventricular systolic function. Left ventricular ejection fraction is 45-50%. Mild mitral regurgitation. Mild tricuspid regurgitation. Compared to prior study on 02/15/14 the LV EF has improved from 40%.
PFT's:
Reports and relevant images were personally reviewed.
.
Subjective Data
-
Date of Service:
Date of Service: October 02, 2024
Chief Complaint: Pulmonary Follow Up and Dyspnea Follow Up
Subjective:
Was somewhat agitated overnight, no complaints of worsening shortness of breath, chest congestion, chest pain or productive cough
Review of Systems
General: Other (Per HPI)
Objective Data
Data Reviewed
Vital Signs / I&O:
Vital Signs
Temp Pulse Resp BP Pulse Ox
97.0 F 77 18 127/76 97
10/02/24 11:20 10/02/24 10:24 10/02/24 10:24 10/02/24 10:00 10/02/24 11:20
Intake and Output
10/01/24 10/02/24 10/03/24
06:59 06:59 06:59
Intake Total 750 / 750
Output Total 100 / 100 1275 / 1275 225 / 225
Balance -100 / -100 -525 / -525 -225 / -225
SaO2: 97
Nasal Cannula flow liters per minute: 2
Physical Exam
General: Respiratory Distress (n) and Comfortable
HEENT: Normocephalic, Anicteric and Moist Mucous Membranes
Cardiovascular: Regular Rhythm
Respiratory: Clear (Diminished breath sounds and prolonged expiratory time), Wheeze (n), Crackles (Few basilar), Rhonchi (n), Non-Labored Respirations, Accessory Resp Muscle Use (n) and Stridor (n)
GI: Soft, Non Distended and Non Tender
Neurology: Awake, Alert and No Motor Deficits
Skin: Warm, Good Color, Cyanosis (n), Jaundice (n) and Rash (n)
Labs/Micro/Reports
Lab Data
10/01/24 06:08
10/02/24 04:18
Microbiology
09/30/24 14:56 Nasal Swab Influenza Types A & B (KEZIA) - Final
Negative for Influenza A & B, NAAT
Negative results must be combined with clinical observations
and patient history.
Nucleic Acid Amplification test (NAAT)performed on the
[employer] platform.
--- NOTE | 2024-10-02 12:25 | W.PN.CD ---
Today's Communication / Plan
-
hold lasix with rising Cr
start Toprol XL and titrate
Impression / Plan
-
84-year-old male with past medical history of CAD status post CABG 2004, dyslipidemia, hypertension, peripheral arterial disease who is here with SOB and weakness.
Dr Avila patient.
SOB: mutifactorial
-being treated for PNA and COPD
-may be a component of HF, but now Cr is rising after IV lasix
ALEXA on CKD3b
-hold lasix today
Heart failure reduced ejection fraction, ischemic cardiomyopathy
-EF 35-40%, down from 45-50% in 2016
-hold lasix with rising Cr
-GDMT limited by ALEXA
-start Toprol XL and titrate
Rhythm
-baseline is NSR, IVCD
-on tele, having brief runs of likely SVT with aberrancy, and also PVC's
-repeat EKG
-will likely get EP input this admission
CAD s.p CABG Elevated troponin peak 0.067 (acute non-ischemic myocardial injury in setting of PNA, ALEXA)
- was on Plavix, now transitioned to ASA 81mg
HTN
- stop amlodipine to allow room for beta alonso titration
Dyslipidemia
- cont statin
PNA w/ hypoxic respiratory failure
- per primary
Elevated LFTs
- HIDA scan per primary
PAD
- holding plavix--now on ASA
Smoker
- encouraged cessation
Physical Exam
Vital Signs/Labs
Vital Signs
Temp Pulse Resp BP Pulse Ox
97.0 F 77 18 127/76 97
10/02/24 11:20 10/02/24 10:24 10/02/24 10:24 10/02/24 10:00 10/02/24 12:12
10/01/24 10/02/24 10/03/24
06:59 06:59 06:59
Actual Weight 66 kg 65.8 kg
10/01/24 06:08
10/02/24 04:18
Magnesium 2.2 mg/dl (1.6-2.3) 10/01/24 06:08
09/30/24 09/30/24
14:26 14:55
Miy-[place] Pept Cancelled > 80728
LAB Results
09/30/24 09/30/24 09/30/24
14:26 14:55 17:08
Troponin I Cancelled 0.061 H* 0.062 H*
09/30/24 10/01/24 10/01/24
18:15 00:16 06:08
Troponin I Cancelled 0.067 H* 0.059 H*
Physical Exam
Constitutional: No acute distress
EENT: Moist mucous membranes
Cardiovascular: Rhythm/rate is irregular, Pedal edema present (trace), JVD present and Systolic murmur present
Respiratory: Respiratory effort normal
Neuro/Psych: AO x 3
Data Reviewed
-
Date of Service: October 02, 2024
EKG: Other (Tele: SR, frequent atrial and ventricular ectopy)
Echo: Report Reviewed by me
Labs: Labs Reviewed by me
--- NOTE | 2024-10-02 12:38 | W.PN.HOSP.TC ---
Today's Communication/Plan
-
Hold diuretics, GDMT per cardiology
Continue bronchodilators and daily IV steroid
Plan to switch IV Abx to Augmentin tomorrow
Wean supplemental oxygen
Formal O2 eval
Assessment / Plan
Assessment / Plan
#Acute hypoxemic respiratory failure
-Multifactorial secondary to decompensated HFrEF, COPD, pneumonia versus aspiration
-Has intermittently required BiPAP here the most recently stable on low level of supplemental oxygen
-SpO2 goal 88 to 94% in context of COPD
-Ordered formal O2 eval
-See below for more detail
#Acute on chronic HFrEF
-TTE here showed LVEF down to 35% from 45% on echo in 2016
-Likely ischemic cardiomyopathy with previous history of CABG
-Status post IV Lasix, uptrending BUN and creatinine, now on hold
-Was started on beta-alnoso for GDMT, otherwise limited by renal function
-Continue to trend BMP, plan for oral Lasix when renal function improving
-Continue GDMT with beta-alonso, monitor on telemetry
-Monitor I's/O's and daily weights
#COPD
-Evidence of emphysema on previous imaging, no previous diagnosis
-PFTs showed FEV1 45-58%, consistent with moderate obstructive disease
-Was on bronchodilators and IV steroids empirically for exacerbation
-Pulmonology has started to taper steroid dosing
-Continue with bronchodilators
#Pneumonia versus pneumonitis
-Imaging findings consistent with CAP versus aspiration event
-Was started on empiric antibiotics with IV Zosyn and azithromycin
-Procalcitonin 0.35, suspect this is not true bacterial infection no benefits outweigh risks of short antibiotic course
#Epigastric pain
-Initial concerns for cholecystitis, however HIDA scan was negative
-Possibly hepatic congestion from decompensated heart failure
-Plavix was switched to aspirin in the event he needed the OR while here
-Will transition antiplatelet therapy back to Plavix
#ALEXA on CKD stage III
-Likely cardiorenal physiology, has limited GDMT for heart failure
-Prerenal ALEXA due to diuresis, IV diuretics discontinued
-Continue to trend BMP and avoid nephrotoxic agents
-Will likely require oral diuretic regimen
#Arrhythmia
-Telemetry here showing intraventricular conduction delays, signs of SVT with abberancy
-No previous known diagnosis of AF or AFL
-Cardiology following, plan to have EP review
#Transaminitis
-Statin was held on arrival due to elevated AST and ALT
-RUQ ultrasound was without significant findings
-Will repeat LFTs tomorrow, if improving or stable will resume statin
#Hypertension
-No known history of hypertensive systemic disease
-Holding home amlodipine as BP was soft earlier on
-Amlodipine not contraindicated in HFrEF but not best medication
#PAD
-Multifocal, low ABIs as well as known high-grade left carotid lesions (internal and common)
-Home medications include statin and Plavix; currently on aspirin as above
-Will transition back to Plavix prior to discharge as above
#CAD s/p CABG x 5
-Home medications included Plavix and statin
-Was started on beta-alonso for GDMT as above
-No signs of ACS here
#Anemia of chronic disease
#Renal cyst -- will need outpatient MRI
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
#Diverticulosis
#BPH
#Active smoker-cessation counseling
#Hypoalbuminemia
#Large bowel containing left scrotal hernia
DVT prophylaxis: heparin
Diet: Regular
CODE STATUS: DNR
Anticipated Discharge: 24 - 48 hours
Subjective/Interval History
-
Date of Service: October 02, 2024
Seen and examined at the bedside. No acute events reported overnight. AFVSS this morning on 2 L supplemental oxygen.
Patient feels well this morning and is asking when he can go home. PFTs performed this morning do show moderate obstructive disease
Denies chest pain, dyspnea, fevers or chills, GI or urinary issues, bleeding or bruising, paresthesias or weakness.
Objective Data
-
Labs:
Laboratory Results
10/02/24
04:18
Sodium 138
Potassium 4.0
Chloride 105
Carbon Dioxide 15 L
BUN 77 H
Creatinine 2.7 H
Glucose 128 H
Calcium 8.2 L
Vital Signs:
Vital Signs
Temp Pulse Resp BP Pulse Ox
97.0 F 77 18 127/76 97
10/02/24 11:20 10/02/24 10:24 10/02/24 10:24 10/02/24 10:00 10/02/24 12:12
I&O
10/01/24 10/02/24 10/03/24
06:59 06:59 06:59
Intake Total 750 / 750 50 / 50
Output Total 100 / 100 1275 / 1275 225 / 225
Balance -100 / -100 -525 / -525 -175 / -175
Review of Systems
-
History Source: Patient and Family
All other systems: Reviewed and negative
Physical Exam
-
General: Well Developed, Well Nourished, No Apparent Distress and Comfortable
HEENT: Normocephalic, Atraumatic and Moist Mucous Membranes
Respiratory: Non Labored Respirations and Decreased Breath Sounds (all mccall); Negative Wheezes, Rales or Rhonchi
Cardiac: Regular Rhythm and S1/S2; Negative Murmur, Rub or Gallop
GI: Soft, Nontender, Nondistended and Normal Bowel Sounds
Musculoskeletal: No Clubbing, No Cyanosis and No Edema
Neuro: AO x 3 and Nonfocal/Grossly Intact
Psych: Calm
Data Reviewed
-
Labs: Labs Reviewed by me, Discussed with Physician, Discussed with Patient and Discussed with Family
[2024-10-02] MEDS: TOPROL XL 25 MG PO ×2 (14:13→20:05)
--- NOTE | 2024-10-02 14:31 | CM ---
Patient seen at bedside with and sister also present. Patient states that he lives with his in a one story home. Patient has a walker and a cane at home but he does not consistently use them. Patient likes to be outside on the deck sitting
as much as possible. Patient expressed worry that patient would not be able to walk as long as he has been in bed. prior to admission patient was able to walk short distances. Patient PCP is Dr. Chance and he uses the [facility] in [place].
Patient has no O2 on currently. Patient would prefer patient to return home with VN and stated she did not expect patient to willingly go to a SNF. CM will update physician and request PT/OT for review. CM will continue to follow for discharge
planning needs.
Plan; home with VN watch for possible SNF needs
[2024-10-02] MEDS: ZITHROMAX INFUSION 250 IV (17:42)
[2024-10-03] VITALS (16 sets, daily range): BP systolic 111–151; BP diastolic 61–105; PULSE 4–73; O2SAT 97; BMI 23.1
[2024-10-03] MEDS: ZOSYN 50 IV ×2 (00:25→05:27)
[2024-10-03] MEDS: HEPARIN 5000 UNITS SC ×4 (00:25→23:05)
--- NOTE | 2024-10-03 04:06 | PTCARENOTE ---
patient is anxious and forgetful, keeps taking bipap mask off, educated, due to [employer] and forgetfulness unable to receive teaching, after multiple attempts to keep bipap on, patient was placed back on 2L NC, sats stable >94%. non productive occasional
cough, positioned with head elevated. bladder scanned for <200 ml, continues to void in the urinal. multiple reassurance provided, since the patient is confused about the place and time and is asking to go home
[2024-10-03] MEDS: ATIVAN 0.5 MG IV (05:42)
[2024-10-03] MEDS: NSS (PRESERVATIVE FREE) 0.25 ML IV (05:42)
--- NOTE | 2024-10-03 05:45 | PTCARENOTE ---
patient became agitated without any obvious reason. took all clothes off, saying he has rights to go home now and no one can stop him. attempted to reassure. patient continuously saying 'you just want to keep me here to get more money from my
insurance' trying to get oob naked and putting his feet on the floor, pushing the staff away. ENGINEERING LIBRARIAN contacted. IV Ativan ordered and administered.
[2024-10-03 06:11] LABS: AST (SGOT) 58 U/L (17-59); Albumin 2.9 g/dl (3.5-5.0); Alkaline Phosphatase 183 U/L (38-126); Blood Urea Nitrogen 82 mg/dl (9-20); Calcium 7.9 mg/dl (8.4-10.2); Carbon Dioxide 18 mmol/L (22-30); Chloride 105 mmol/L (98-107); Direct Bilirubin 0.5 mg/dl (0.0-0.4); Estimated Creatinine Clearance 20 ml/min; Glucose 108 mg/dl (70-99); Magnesium 2.6 mg/dl (1.6-2.3); Total Bilirubin 0.8 mg/dl (0.2-1.3); Total Protein 5.4 g/dl (6.3-8.2); eGFR 23.58
[2024-10-03 06:19] LABS: ALT (SGPT) 141 U/L (0-50); Potassium 4.2 mmol/L (3.5-5.1); Sodium 137 mmol/L (135-145)
[2024-10-03] MEDS: DUONEB 3 ML INH ×4 (07:46→19:47)
[2024-10-03] MEDS: PULMICORT 0.5 MG INH ×2 (07:46→19:47)
[2024-10-03] MEDS: DESENEX/MITRAZOL/ZEASORB 1 APPLIC TOPICAL ×2 (08:44→21:47)
[2024-10-03] MEDS: MUCINEX 600 MG PO ×2 (08:45→20:38)
[2024-10-03] MEDS: TOPROL XL 25 MG PO (08:46)
[2024-10-03] MEDS: NICODERM TRANSDERMAL 14 MG TRANSDERM (08:46)
[2024-10-03] MEDS: PLAVIX 75 MG PO (08:52)
--- NOTE | 2024-10-03 11:01 | W.PN.HOSP.TC ---
Today's Communication/Plan
-
Transition to oral antibiotic and steroid
Likely start oral diuretic within 24 hours
PT and oxygen evaluation
Transition from ASA back to Plavix
Assessment / Plan
Assessment / Plan
#Acute hypoxemic respiratory failure
-Multifactorial secondary to decompensated HFrEF, COPD, pneumonia versus aspiration
-Has intermittently required BiPAP here the most recently stable on low level of supplemental oxygen
-SpO2 goal 88 to 94% in context of COPD
-Ordered formal O2 eval
-See below for more detail
#Acute on chronic HFrEF
-TTE here showed LVEF down to 35% from 45% on echo in 2016
-Likely ischemic cardiomyopathy with previous history of CABG
-Status post IV Lasix, uptrending BUN and creatinine, now on hold
-Was started on beta-alonso for GDMT, otherwise limited by renal function
-Continue to trend BMP, plan for oral Lasix when renal function improving
-Continue GDMT with beta-alonso, monitor on telemetry
-Monitor I's/O's and daily weights
#COPD
-Evidence of emphysema on previous imaging, no previous diagnosis
-PFTs showed FEV1 45-58%, consistent with moderate obstructive disease
-Was on bronchodilators and IV steroids empirically for exacerbation
-Pulmonology has started to taper steroid dosing, plan to switch to oral regimen tomorrow
-Continue with bronchodilators
#Pneumonia versus pneumonitis
-Imaging findings consistent with CAP versus aspiration event
-Was started on empiric antibiotics with IV Zosyn and azithromycin
-Procalcitonin 0.35, suspect this is not true bacterial infection no benefits outweigh risks of short antibiotic course
-Will transition to augmentin today to complete 7 day course
#Epigastric pain
-Initial concerns for cholecystitis, however HIDA scan was negative
-Possibly hepatic congestion from decompensated heart failure
-Plavix was switched to aspirin in the event he needed the OR while here
-Will transition antiplatelet therapy back to Plavix
#ALEXA on CKD stage III
-Likely cardiorenal physiology, has limited GDMT for heart failure
-Prerenal ALEXA due to diuresis, IV diuretics discontinued
-Continue to trend BMP and avoid nephrotoxic agents
-Will likely require oral diuretic regimen
#Arrhythmia
-Telemetry here showing intraventricular conduction delays, signs of SVT with abberancy
-No previous known diagnosis of AF or AFL
-Cardiology following, plan to have EP review
#Transaminitis
-Statin was held on arrival due to elevated AST and ALT
-RUQ ultrasound was without significant findings
-Improved with time and diuretics, resumed statin
#Hypertension
-No known history of hypertensive systemic disease
-Holding home amlodipine as BP was soft earlier on
-Amlodipine not contraindicated in HFrEF but not best medication
#PAD
-Multifocal, low ABIs as well as known high-grade left carotid lesions (internal and common)
-Home medications include statin and Plavix; currently on aspirin as above
-Will transition back to Plavix prior to discharge as above
#CAD s/p CABG x 5
-Home medications included Plavix and statin
-Was started on beta-alonso for GDMT as above
-No signs of ACS here
#Renal cyst -- will need outpatient MRI
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
#Anemia of chronic disease
#Diverticulosis
#BPH
#Active smoker-cessation counseling
#Hypoalbuminemia
#Large bowel containing left scrotal hernia
DVT prophylaxis: heparin
Diet: Regular
CODE STATUS: DNR
Anticipated Discharge: Within 24 hours
Subjective/Interval History
-
Date of Service: October 03, 2024
Seen and examined at the bedside. Overnight he pulled off his close and oxygen apparatus, he was oriented and placed back on O2. As of this morning AFVSS on 2 L O2
Spoke with his family at the bedside, including his son and [id number]. Informed them of likely disposition for SNF to which they seemed agreeable
Denies acute complaints this morning including chest pain, dyspnea, fevers or chills, lightheadedness, GI or urinary issues, bleeding or bruising, paresthesias or weakness
Objective Data
-
Labs:
Laboratory Results
10/03/24
04:39
Sodium 137
Potassium 4.2
Chloride 105
Carbon Dioxide 18 L
BUN 82 H
Creatinine 2.6 H
Glucose 108 H
Calcium 7.9 L
Total Bilirubin 0.8
AST 58
ALT 141 H
Alkaline Phosphatase 183 H
Vital Signs:
Vital Signs
Temp Pulse Resp BP Pulse Ox
97.5 F 65 16 133/90 95
10/03/24 07:30 10/03/24 08:46 10/03/24 07:46 10/03/24 08:46 10/03/24 07:46
I&O
10/02/24 10/03/24 10/04/24
06:59 06:59 06:59
Intake Total 750 / 750 350 / 350
Output Total 1275 / 1275 650 / 650
Balance -525 / -525 -300 / -300
Review of Systems
-
History Source: Patient
All other systems: Reviewed and negative
Physical Exam
-
General: Well Developed, No Apparent Distress, Comfortable and Other (Frail-appearing)
HEENT: Normocephalic, Atraumatic and Moist Mucous Membranes
Respiratory: Rhonchi (bilateral, central) and Non Labored Respirations; Negative Wheezes, Rales or Accessory Resp Muscle Use
Cardiac: Regular Rhythm and S1/S2; Negative Murmur, Rub, JVD or Gallop
GI: Soft, Nontender, Nondistended and Normal Bowel Sounds
Musculoskeletal: No Clubbing, No Cyanosis and No Edema
Skin: Warm and Dry; Negative Rash
Neuro: AO x 3 and Nonfocal/Grossly Intact; Negative Tremors
Psych: Calm
Data Reviewed
-
Labs: Labs Reviewed by me, Discussed with Patient and Discussed with Family
--- NOTE | 2024-10-03 11:54 | W.PN.CD ---
Today's Communication / Plan
-
lasix 80mg IV once today, and trend Cr, weight
increase Toprol XL
Impression / Plan
-
84-year-old male with past medical history of CAD status post CABG 2004, dyslipidemia, hypertension, peripheral arterial disease who is here with SOB and weakness.
Cards: Dr Avila.
SOB: mutifactorial
-being treated for PNA and COPD, also component of HF
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
Acute Heart failure reduced ejection fraction, ischemic cardiomyopathy with moderate MR
-EF 35-40%, down from 45-50% in 2016
-GDMT limited by ALEXA/CKD4
-increase Toprol XL to 50mg bid
-lasix 80mg IV once today, and trend Cr, weight
Rhythm
-baseline is NSR, IVCD
-on tele, having brief runs of likely SVT with aberrancy, and also PVC's
-Toprol XL
CAD s.p CABG Elevated troponin peak 0.067 (acute non-ischemic myocardial injury in setting of PNA, ALEXA)
-on Plavix as outpatient
HTN
- stopped amlodipine to allow room for beta alonso titration
Dyslipidemia
- cont statin
PNA w/ hypoxic respiratory failure
- per primary
Elevated LFTs
- HIDA scan per primary
PAD
- on Plavix
Smoker
- encouraged cessation
Physical Exam
Vital Signs/Labs
Vital Signs
Temp Pulse Resp BP Pulse Ox
97.5 F 68 20 133/90 94
10/03/24 07:30 10/03/24 11:08 10/03/24 11:08 10/03/24 08:46 10/03/24 11:08
10/02/24 10/03/24 10/04/24
06:59 06:59 06:59
Actual Weight 65.8 kg
10/01/24 06:08
10/03/24 04:39
Magnesium 2.6 mg/dl (1.6-2.3) H 10/03/24 04:39
09/30/24 09/30/24
14:26 14:55
Upp-D-Rfmolnkpqxt Pept Cancelled > 83921
LAB Results
09/30/24 09/30/24 09/30/24
14:26 14:55 17:08
Troponin I Cancelled 0.061 H* 0.062 H*
09/30/24 10/01/24 10/01/24
18:15 00:16 06:08
Troponin I Cancelled 0.067 H* 0.059 H*
Physical Exam
Constitutional: Other (increased WOB)
EENT: Moist mucous membranes
Cardiovascular: Pedal edema is absent, JVD present and Systolic murmur present
Respiratory: Labored respirations
Neuro/Psych: AO x 3
Data Reviewed
-
Date of Service: October 03, 2024
EKG: Other (Tele: NSR, frequent PVC's, also PAC's)
Labs: Labs Reviewed by me
[2024-10-03] MEDS: ASPIR LOW (ENTERIC COATED) PO (12:38)
[2024-10-03] MEDS: LASIX 80 MG IV (12:38)
[2024-10-03] MEDS: DECADRON 4 MG IV (12:39)
--- NOTE | 2024-10-03 12:49 | W.PN.PUL.V3 ---
Today's Communication / Plan
-
Antibiotics-oral
Change steroids to oral
Diuresis
Increase activity
Wean FiO2
Continue nebulizers and mucolytic's
Assessment
-
Patient is an 84-year-old male with past medical history of CAD, HTN, HLD presenting to ER with shortness of breath, cough w/ bloody sputum, epigastric pain rating to his back and weakness over the past several days. Had an outpatient CT scan
with suspected contracted gallbladder, ground glass opacities suggesting pneumonia. On arrival to ER, noted to have WBC 16.3, creat 2.4, proBNP >27,000. Admitted for CHF exacerbation, with potential comorbid PNA. We are consulted for eval.
Acute hypoxic resp insufficiency, on 2L, 85% on RA
COPD-FEV1 1.45-58%
Acute HFrEF, proBNP >70519
Possible superimposed PNA
GGOs on CT, pleural effusions
Leukocytosis
ALEXA, creat 2.4
Metabolic acidosis
Pulmonary nodules
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
Coronary artery disease s/p CABG x 5
Hyperlipidemia
Hypertension
PVD/PAD w/ claudication - MAGNUS 0.72.
Occluded right SFA proximally/reconstitution of popliteal artery.
Left MAGNUS 0.41 with TBI of 0.28.
Occluded left distal external iliac artery, left SFA proximal occlusion, popliteal artery occlusion.
Follows with Dr Lynch
COPD/mucopurulent chronic bronchitis
Recurrent UTI
CKD 3
Bilateral recurrent inguinal hernia
Plan
Decompensation a combination of CHF, pneumonia, and COPD
Respiratory status about the same
Supplemental oxygen as needed-currently on 3 L
Evaluate for home oxygen-has COPD
Mucolytic's-on Mucinex
DuoNebs and Pulmicort nebulizers
Decadron-fairly rapid taper-transition to oral steroid 10/03/2024
Aspiration precautions
Speech therapy evaluation
Prior history of lung disease is not noted--Was never told in the past he has lung disease.
Current smoker, up to 1PPD since he was 11 years old. Has cut down to 1/2 PPD.
Denies history of lung disease in family.
Never seen by senior construction project manager in past.
Has a h/o COPD in his chart, but no prior PFTs
Spirometry 10/02/2024-FEV1 1.45 L - 58%, no significant BD response
Check cultures
Unable to produce sputum
Empiric antibiotics-on Zosyn-transition to oral
HIDA scan 10/01/2024-no evidence for cystic duct or common bile duct obstruction
CHF also suspected given proBNP >30533
CXR/CT obtained indicating GGOs likely more edema, CT AP with effusions
This is less so PNA, but can check procal/sputum culture
Other imaging reviewed
Diuresis as tolerated
Monitor renal function, electrolytes, intake/output, lower extremity edema and weight
Replace electrolytes as needed
Echocardiogram 10/01/2024-EF 35-40%, moderate mitral regurgitation-reduced EF from 2016-EF was 45-50%
Cardiology consultation noted-correspondence reviewed
Smoking cessation counseling ongoing
Nicotine patch
DVT prophylaxis-on heparin
Nutrition
Early mobilization
Outpatient pulm evaluation-PFTs, 6-minute walk test, smoking cessation counseling lung cancer screening
Reviewed with nursing as well as son at the bedside as well as primary team-Dr. Bond
Diagnostic Data
Chest X-Ray: 09/30/24- Pneumonia in the left lung. Radiographic follow-up to resolution is recommended. Mild pulmonary vascular congestion with trace bilateral pleural fluid and cardiomegaly.
CT Scan: AP 09/29/24- Lung Bases: There is a moderate right pleural effusion. There is a small pleural effusion. There are moderate groundglass densities in both lower lobes, left greater than right and mildly in the lingula. There are calcified
nodules in the right middle lobe consistent with prior benign granulomatous disease
Echo: 4/7/16- Mildly reduced left ventricular systolic function. Left ventricular ejection fraction is 45-50%. Mild mitral regurgitation. Mild tricuspid regurgitation. Compared to prior study on 02/15/14 the LV EF has improved from 40%.
.
Subjective Data
-
Date of Service:
Date of Service: October 03, 2024
Chief Complaint: Pulmonary Follow Up and Dyspnea Follow Up
Subjective:
Still with significant confusion at nighttime, some wheezing, nonproductive cough, no chest pain or abdominal pain
Review of Systems
General: Other (Per HPI)
Objective Data
Data Reviewed
Vital Signs / I&O:
Vital Signs
Temp Pulse Resp BP Pulse Ox
97.5 F 68 20 133/90 94
10/03/24 07:30 10/03/24 11:08 10/03/24 11:08 10/03/24 08:46 10/03/24 11:08
Intake and Output
10/02/24 10/03/24 10/04/24
06:59 06:59 06:59
Intake Total 750 / 750 350 / 350
Output Total 1275 / 1275 650 / 650
Balance -525 / -525 -300 / -300
SaO2: 94
Nasal Cannula flow liters per minute: 2
Physical Exam
General: Respiratory Distress (n) and Comfortable
HEENT: Normocephalic, Anicteric and Moist Mucous Membranes
Cardiovascular: Regular Rhythm
Respiratory: Clear (Diminished breath sounds and prolonged expiratory time), Wheeze (n), Crackles (Few basilar), Rhonchi (n), Non-Labored Respirations, Accessory Resp Muscle Use (n) and Stridor (n)
GI: Soft, Non Distended and Non Tender
Neurology: Awake, Alert and No Motor Deficits
Skin: Warm, Good Color, Cyanosis (n), Jaundice (n) and Rash (n)
Labs/Micro/Reports
Lab Data
10/01/24 06:08
10/03/24 04:39
Microbiology
09/30/24 14:56 Nasal Swab Influenza Types A & B (KEZIA) - Final
Negative for Influenza A & B, NAAT
Negative results must be combined with clinical observations
and patient history.
Nucleic Acid Amplification test (NAAT)performed on the
[employer] platform.
--- NOTE | 2024-10-03 15:28 | PTCARENOTE ---
Assumed care of pt this am, he was drowsy with garbled speech but once dentures cleaned and put in speech was somewhat easier to understand. pt also had received Ativan IV during the night. Pt's son at bedside providing emotional support to patient.
Breakfast ordered and pt did drink decaf coffee and toast with Peanut Butter and was in good spirits and breakfast. He is very MODOC and is forgetful but when discussing family history and family members he is accurate and appropriate. He continues to
ask for cigarettes and is reminded that he does have a Nicoderm patch in place. Lungs are coarse throughout with audible exp wheezing with any exertion. pt is on room air with pulse ox 94%, signal is weak at times due to peripheral perfusion. Abd is
soft with active bowel tones x 4. Large hernia extending from lower abd into scrotum. Family reports that he is not a surgical candidate due to his cardiac history. Pt has difficulty starting urine flow and has some difficulty exposing penis from
within scrotum. Pt received 80 mg Lasix and had urine output of 125 and bladder scan <300. Will continue to monitor. OOB to chair today with 2 assist, pt is impulsive and unsteady. chair alarm and bed alarm on at all times. Pt has constant flow of
visitors today. He does become confused at times and asks his to get him cigarettes or things from another room (and he is referring to rooms at home)/
[2024-10-03] MEDS: ZITHROMAX INFUSION 250 IV (17:16)
[2024-10-03] MEDS: LIPITOR 20 MG PO (17:16)
--- NOTE | 2024-10-03 17:31 | PTCARENOTE ---
Patient transferred to tele level of care and report called to 3 Dave RN. Familyis at bedside and aware of plan of care and move to room 333.
[2024-10-03] MEDS: AUGMENTIN 500 MG/125 MG 1 TABLET PO (20:38)
[2024-10-03] MEDS: TOPROL XL 50 MG PO (20:39)
[2024-10-04] VITALS (13 sets, daily range): BP systolic 122–143; BP diastolic 66–86; BMI 22.9
[2024-10-04] MEDS: ATIVAN 0.5 MG PO (00:43)
[2024-10-04] MEDS: RISPERDAL M-TAB (ORALLY DISINTEGRATING) 0.25 MG PO (02:43)
[2024-10-04 06:38] LABS: % Basophils 0.2 % (0-2); % Immature Granulocytes 1.5 % (0-0.5); % Lymphocytes 9.4 % (20.5-51.1); % Monocytes 6.6 % (1.7-9.3); % Neutrophils 82.3 % (42.2-75.2); Absolute Immature Granulocytes 0.3 10^3/uL (0-0.05); Absolute Monocytes 1.4 10^3/uL (0.1-0.6); Absolute Neutrophils 17.8 10^3/uL (1.4-6.5); Hemoglobin 10.9 g/dL (13.0-18.0); Mean Corp Hgb Conc. 34.1 g/dL (33.0-37.0); Mean Corpuscular Volume 99.7 fL (80.0-94.0); Mean Platelet Volume 10.9 fL (7.4-10.4); Nucleated Red Blood Cells % 0 % (-); Platelet Count 256 10^3/uL (130-400); Red Blood Cell Count 3.21 10^6/uL (4.70-6.10); Red Cell Dist. Width 13.3 % (11.5-14.5); White Blood Cell Count 21.7 10^3/uL (4.8-10.8)
[2024-10-04 06:58] LABS: Blood Urea Nitrogen 90 mg/dl (9-20); Calcium 8.2 mg/dl (8.4-10.2); Carbon Dioxide 15 mmol/L (22-30); Chloride 104 mmol/L (98-107); Estimated Creatinine Clearance 19 ml/min; Glucose 92 mg/dl (70-99); Potassium 4.2 mmol/L (3.5-5.1); Sodium 136 mmol/L (135-145); eGFR 22.53
[2024-10-04] MEDS: PULMICORT 0.5 MG INH ×2 (07:20→20:17)
[2024-10-04] MEDS: DUONEB 3 ML INH ×3 (07:21→20:17)
--- NOTE | 2024-10-04 07:33 | W.PN.HOSP.TC ---
Today's Communication/Plan
-
right heart catheterization today per Cards
Assessment / Plan
Assessment / Plan
84 y/o male with pmh of CAD s/p CABG, HLD, HTN, PVD presents to with SOB, cough with bloody sputum, currently being managed for pneumonia.
#Acute hypoxemic respiratory failure
Likely secondary to decompensated HFrEF versus COPD versus pneumonia versus aspiration
Continue use of BiPAP, currently without need of nasal cannula oxygen supplementation
Continue to monitor
#Acute on chronic HFrEF
Echo showed ejection fraction down to 35% from 45% in 2016
R heart cath today
IV Lasix on hold (one dose of IV 80 mg yesterday), BUN and creatinine continued to uptrend, restart oral Lasix when renal function improved
Continue beta-alonso for GDMT. Dosage increased to 50 mg Toprol XL
Continue to trend BMP
Monitor ins and outs, daily weights
#COPD
PFTs show FEV1 45 to 58%, moderate obstructive disease
Per pulmonology, transitioning to oral steroids today (40 mg daily)
Continue bronchodilators
#Leukocytosis
likely secondary to steroid use
continue to monitor
#Pneumonia versus pneumonitis
Initially on IV Zosyn and azithromycin, transition to Augmentin today for 7 days
#Epigastric pain
Concern for cholecystitis, HIDA negative
Pain resolved, Plavix restarted
#ALEXA on CKD stage III
Likely secondary to cardiorenal physiology, limited GDMT
IV diuretics discontinued in the setting of prerenal ALEXA
Trend BMP and consider oral diuretics at time of discharge
#Arrhythmia
no known A fib or A flutter
Cardiology on board, R-heart cath today
#Transaminitis
continue statin
#Hypertension
Currently holding home amlodipine due to soft pressures during hospital stay
#PAD
known high grade L carotid lesions
continue statin and plavix
#CAD s/p CABG x 5
Continue statin and plavix.
continue BB per GDMT
#Renal cyst: will need outpatient MRI
#Infrarenal AAA: 4.1 cm. FU OP
#Anemia of chronic disease
#Diverticulosis
#BPH
#Active smoker-cessation counseling
#Hypoalbuminemia
#Large bowel containing left scrotal hernia
DVT prophylaxis: heparin
Diet: Regular
CODE STATUS: DNR
Anticipated Discharge: 24 - 48 hours
Subjective/Interval History
-
Date of Service: October 04, 2024
84 y/o male with pmh of CAD s/p CABG, HLD, HTN, PVD presents to with SOB, cough with bloody sputum, currently being managed for pneumonia. Patient is mildly confused today, asking for his wallet, when he needs to go to court and where he can
buy breakfast. Unable to accurately discern symptoms. Patient currently comfortable and conversant on room air
Objective Data
-
Labs:
Laboratory Results
10/04/24
05:43
WBC 21.7 H
Hgb 10.9 L
Hct 32.0 L
Plt Count 256
Sodium 136
Potassium 4.2
Chloride 104
Carbon Dioxide 15 L
BUN 90 H
Creatinine 2.7 H
Glucose 92
Calcium 8.2 L
Vital Signs:
Vital Signs
Temp Pulse Resp BP Pulse Ox
97.6 F 57 16 128/78 100
10/04/24 03:00 10/04/24 07:26 10/04/24 07:26 10/04/24 03:00 10/04/24 07:26
I&O
10/03/24 10/04/24 10/05/24
06:59 06:59 06:59
Intake Total 350 / 350 720 / 720
Output Total 650 / 650 1200 / 1200
Balance -300 / -300 -480 / -480
Review of Systems
-
History Source: Patient
All other systems: Reviewed and negative
Physical Exam
-
General: No Apparent Distress, Conversant and Cachectic
HEENT: Normocephalic and Atraumatic
Cardiac: Regular Rhythm and S1/S2
GI: Soft, Nontender and Nondistended
Musculoskeletal: No Clubbing, No Cyanosis and No Edema
Skin: Warm and Dry
Neuro: AO x 3
Psych: Calm
Data Reviewed
-
Labs: Labs Reviewed by me and Discussed with Physician
Old Records: Reviewed
[2024-10-04] MEDS: MUCINEX 600 MG PO ×2 (08:18→19:47)
[2024-10-04] MEDS: TOPROL XL 50 MG PO (08:18)
[2024-10-04] MEDS: PLAVIX 75 MG PO (08:18)
[2024-10-04] MEDS: NICODERM TRANSDERMAL 14 MG TRANSDERM (08:18)
[2024-10-04] MEDS: DELTASONE 40 MG PO (08:18)
[2024-10-04] MEDS: AUGMENTIN 500 MG/125 MG 1 TABLET PO ×2 (08:20→19:47)
[2024-10-04] MEDS: OSCAL CAL 500 500 MG PO (08:20)
[2024-10-04] MEDS: DESENEX/MITRAZOL/ZEASORB 1 APPLIC TOPICAL ×2 (08:21→19:47)
[2024-10-04] MEDS: HEPARIN 5000 UNITS SC ×3 (08:21→22:59)
--- NOTE | 2024-10-04 13:20 | W.PN.PUL3 ---
Today's Communication / Plan
-
Continue nebulizer
Prednisone taper-decrease by 10 mg every 48 hours to off
Antibiotic-complete total 7 days
Diuresis
Right heart catheterization today
Assessment
-
Patient is an 84-year-old male with past medical history of CAD, HTN, HLD presenting to ER with shortness of breath, cough w/ bloody sputum, epigastric pain rating to his back and weakness over the past several days. Had an outpatient CT scan
with suspected contracted gallbladder, ground glass opacities suggesting pneumonia. On arrival to ER, noted to have WBC 16.3, creat 2.4, proBNP >27,000. Admitted for CHF exacerbation, with potential comorbid PNA. We are consulted for eval.
Acute hypoxic resp insufficiency, on 2L, 85% on RA
COPD-FEV1 1.45-58%
Acute HFrEF, proBNP >40964
Possible superimposed PNA
GGOs on CT, pleural effusions
Leukocytosis
ALEXA, creat 2.4
Metabolic acidosis
Pulmonary nodules
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
Coronary artery disease s/p CABG x 5
Hyperlipidemia
Hypertension
PVD/PAD w/ claudication - MAGNUS 0.72.
Occluded right SFA proximally/reconstitution of popliteal artery.
Left MAGNUS 0.41 with TBI of 0.28.
Occluded left distal external iliac artery, left SFA proximal occlusion, popliteal artery occlusion.
Follows with Dr Lynch
COPD/mucopurulent chronic bronchitis
Recurrent UTI
CKD 3
Bilateral recurrent inguinal hernia
Plan
Decompensation a combination of CHF, pneumonia, and COPD
Respiratory status about the same
Oxygen supplementation has been weaned off.
-
Not bronchospastic on exam at this point:
Mucolytic's-on Mucinex
DuoNebs and Pulmicort nebulizers-while in the hospital. Patient usually does not take any inhalers at home-can be discharged on nebulizers until seen in our office.
Continue prednisone taper transitioned on 10/03/2024. Decrease by 10 mg every 48 hours to off.
Aspiration precautions
Prior history of lung disease is not noted--Was never told in the past he has lung disease.
Current smoker, up to 1PPD since he was 11 years old. Has cut down to 1/2 PPD.
Denies history of lung disease in family.
Never seen by electrical panel builder in past.
Has a h/o COPD in his chart, but no prior PFTs
Spirometry 10/02/2024-FEV1 1.45 L - 58%, no significant BD response
Cultures so far negative.
Unable to produce sputum
Continue oral anticoagulation send complete 7 days.
HIDA scan 10/01/2024-no evidence for cystic duct or common bile duct obstruction
CHF also suspected given proBNP >11099
Echocardiogram 10/01/2024-EF 35-40%, moderate mitral regurgitation-reduced EF from 2016-EF was 45-50%
CXR/CT obtained indicating GGOs likely more edema, CT AP with effusions
This is less so PNA, but can check procal/sputum culture
Difficult to assess volume status
For right heart catheterization today 10/04/2024
Diuresis per cardio
Monitor renal function, electrolytes, intake/output, lower extremity edema and weight
Replace electrolytes as needed
Cardiology consultation noted-correspondence reviewed
Smoking cessation counseling ongoing
Nicotine patch
DVT prophylaxis-on heparin
Outpatient pulm evaluation-PFTs, 6-minute walk test, smoking cessation counseling lung cancer screening
Will follow
Diagnostic Data
Chest X-Ray: 09/30/24- Pneumonia in the left lung. Radiographic follow-up to resolution is recommended. Mild pulmonary vascular congestion with trace bilateral pleural fluid and cardiomegaly.
CT Scan: AP 09/29/24- Lung Bases: There is a moderate right pleural effusion. There is a small pleural effusion. There are moderate groundglass densities in both lower lobes, left greater than right and mildly in the lingula. There are calcified
nodules in the right middle lobe consistent with prior benign granulomatous disease
Echo: 02/15/16- Mildly reduced left ventricular systolic function. Left ventricular ejection fraction is 45-50%. Mild mitral regurgitation. Mild tricuspid regurgitation. Compared to prior study on 02/15/14 the LV EF has improved from 40%.
.
Subjective Data
-
Date of Service:
Date of Service: October 04, 2024
Chief Complaint: Pulmonary Follow Up and Dyspnea Follow Up
Subjective:
No new pulmonary complaints
Afebrile
No significant phlegm production
Review of Systems
General: Fever (n)
Cardiopulmonary: Dyspnea (none at rest)
GI: Abdominal Pain (n) and Nausea (n)
Objective Data
Data Reviewed
Vital Signs / I&O / Oxygen:
Vital Signs
Temp Pulse Resp BP Pulse Ox
97.6 F 58 18 131/75 98
10/04/24 11:41 10/04/24 11:41 10/04/24 11:41 10/04/24 11:41 10/04/24 11:41
Intake and Output
10/03/24 10/04/24 10/05/24
06:59 06:59 06:59
Intake Total 350 / 350 720 / 720
Output Total 650 / 650 1200 / 1200
Balance -300 / -300 -480 / -480
SaO2 98
Nasal Cannula flow liters per 1
minute
Physical Exam
General: Respiratory Distress (n) and Comfortable
HEENT: Normocephalic, Anicteric and Moist Mucous Membranes
Cardiovascular: Regular Rhythm
Respiratory: Clear (Diminished breath sounds and prolonged expiratory time), Wheeze (n), Crackles (Few basilar), Rhonchi (n), Non-Labored Respirations, Accessory Resp Muscle Use (n) and Stridor (n)
GI: Soft, Non Distended and Non Tender
Neurology: Awake, Alert and No Motor Deficits
Skin: Warm, Good Color, Cyanosis (n), Jaundice (n) and Rash (n)
Labs/Micro/Reports
Lab Data
10/04/24 05:43
10/04/24 05:43
[2024-10-04] MEDS: DUONEB INH (15:00)
--- NOTE | 2024-10-04 15:12 | CM ---
CM met with spouse, dtr, DIL and granddtr to discuss dc planning
Pt off unit
SNF recommendations by therapy
Family noting pt may not do well in SNF cognitively and emotionally
Lengthy discussion regrading physical needs and 24/7 care at home
In agreement with SNF referral to [facility] dementia unit
Private duty list also provided to family
They will call to inquire and looking into costs
They are aware VN and DMR can be arranged at home but pt will require 24/7 care at this time
Plan to follow up with family on final dc dispo determination
Referral sent to [facility]
Discharge Disposition- SNF vs home with private duty, VN and possible DMEs
--- NOTE | 2024-10-04 15:23 | ITS.CL.PN ---
[employer] - Procedure Note
Procedure
Procedure Note:
RIGHT HEART CATHETERIZATION
Date of Procedure: 10/04/24
Referring: Dr. Avila
INDICATION: heart failure
ACCESS:
5 Azerbaijani Antecubital Fossa
8.5 Azerbaijani right internal jugular vein
CATHETERS:
5 [place] Balloon Wedge/[place]-Jose
7 [place] Balloon Wedge/[place]Jose
HEMODYNAMICS
RA 19 mmHg
RV 59/13 (EDP 18) mmHg
PA 59/30 (mean 39) mmHg
PCWP 35 (V-waves to 58) mmHg
SaO2 98.0%
SvO2 35.7%
CO/CI 2.4/1.4 L/min/m2
PVR 1.6 Wood Units
SVR 2754 dsc*5
CONCLUSION:
1. Severely elevated biventricular filling pressures
2. Severe post-capillary pulmonary hypertension
3. Severely reduced cardiac output with elevated SVR
4. Leave in swan swen in the right IJ at 59 cm
RECOMMENDATIONS:
1. Hemo-guided management of heart failure
2. Initiate dobutamine @5
3. Lasix 100 mg bolus and start drip at 15 mg/hr
4. Stop metoprolol. If goes back in SVT and rate control required consider digoxin.
Copy to: Dr. Nathaniel Avila MD (cardiology), Dr. Christian Gabriel MD (PCP)
Signed: Clayton Freeman MD, PhD
--- NOTE | 2024-10-04 15:51 | W.PN.CD ---
Today's Communication / Plan
-
cath with severely elevated filling pressures and reduced cardiac output
transfer to ICU for hemo-guided management
start dobutamine, IV lasix bolus and drip
hold metop and use dig if rate control needed
Impression / Plan
-
84-year-old male with past medical history of CAD status post CABG 2004, dyslipidemia, hypertension, peripheral arterial disease who is here with SOB and weakness.
Cards: Dr Avila.
SOB: mutifactorial
-being treated for PNA and COPD, also component of HF
-RHC today suggestive of severe decompenstaed heart failure with elevated biventricular filling pressures and low cardiac output with high SVT
-swan left in right IJ and patient transferred to ICU
-dobutamine started at 5 and given 100 IV lasix with 15 mg/mL drip started
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
-likely cardiorenal in setting of decompensated heart failure
Acute Heart failure reduced ejection fraction, ischemic cardiomyopathy with moderate MR
-EF 35-40%, down from 45-50% in 2016
-GDMT limited by ALEXA/CKD4
-hold Toprol XL to 50mg bid in setting of severely reduced CI; if requires further rate control would consider digoxin
Rhythm
-baseline is NSR, IVCD
-on tele, having brief runs of likely SVT with aberrancy, and also PVC's
-Toprol XL (holding)
CAD s.p CABG Elevated troponin peak 0.067 (acute non-ischemic myocardial injury in setting of PNA, ALEXA)
-on Plavix as outpatient
HTN
- stopped amlodipine to allow room for beta alonso titration
Dyslipidemia
- cont statin
PNA w/ hypoxic respiratory failure
- per primary
Elevated LFTs
- HIDA scan per primary
PAD
- on Plavix
Smoker
- encouraged cessation
Physical Exam
Vital Signs/Labs
Vital Signs
Temp Pulse Resp BP Pulse Ox
36.4 C 58 18 131/75 98
10/04/24 11:41 10/04/24 11:41 10/04/24 11:41 10/04/24 11:41 10/04/24 11:41
10/03/24 10/04/24 10/05/24
06:59 06:59 06:59
Actual Weight 66.8 kg 66.224 kg
10/04/24 05:43
10/04/24 05:43
Magnesium 2.6 mg/dl (1.6-2.3) H 10/03/24 04:39
09/30/24 09/30/24
14:26 14:55
[id number] Pept Cancelled > [id number]
Physical Exam
Constitutional: Confusion
Cardiovascular: Rhythm & rate is regular, Systolic murmur absent and JVD present
Respiratory: Respiratory effort normal
Neuro/Psych: Alert
Data Reviewed
-
Date of Service: October 04, 2024
Medical Decision Making: Reviewed Test Results
EKG: Tracing Personally Visualized and interpreted and Report Reviewed by me
Echo: Tracing Personally Visualized and interpreted and Report Reviewed by me
X-Ray/CT/US/MRI/NUC/PET: Image Personally Visualized and interpreted and Report Reviewed by me
Labs: Labs Reviewed by me
[2024-10-04] MEDS: DOBUTREX 500 MG 250 IV (16:16)
--- NOTE | 2024-10-04 16:35 | PTOTSP ---
ST Follow-Up Attempt
Chart reviewed. Pt transferred to CVICU after cardiac cath lab manager. Need new orders or for [employer] tx orders to be continued upon transfer to continue with tx. Will f/u once orders are continued and/or new orders are received. Thank you.
[2024-10-04] MEDS: LASIX 100 MG IV (16:43)
[2024-10-04] MEDS: LASIX 50 IV (16:46)
[2024-10-04] MEDS: LIPITOR PO (17:48)
--- NOTE | 2024-10-04 20:00 | PTCARENOTE ---
Received pt from [facility]. pt resting comfortably in bed with family at bedside. pt s/p right heart cath. pt is awake, alert, oriented to person, place and time. pt is unsure of event and becomes easily confused. pt is [place] and currently on bed rest.
NSR with multiple PVCs, heart sounds audible, radial and DP pulses palpable, +3 scrotal edema. lungs are diminished at b/l bases and crackles throughout, pt is currently be treated for pneumonia, spo2 100% on 4 LNC. hypoactive BS x4 quadrants,
abdomen soft non tender, pt reports poor appetite, pt is being followed by speech. pt is incontinent of urine, unable to use condom catheter due to anatomy/scrotal edema, brief in place, on going ryder-care. right brachial artery cath site dressing
clean dry and intact. right IJ cordis, swan, and PV all maintained , leveled, and zeroed. dobutamine and lasix ggt infusing. call bates within reach. ongoing monitoring.
[2024-10-05] VITALS (29 sets, daily range): BP systolic 107–149; BP diastolic 58–98; PULSE 57–58; O2SAT 98; BMI 22.3
--- NOTE | 2024-10-05 | PTCARENOTE ---
pt assessment unchanged. NSR with ongoing PVC, VSS. pt continues to saturate brief every hour. Dr Freeman contacted and verbal order for Carter catheter taken. Carter placed without difficulty.
--- NOTE | 2024-10-05 03:00 | PTCARENOTE ---
pt has voiding 1000ls of urine since weeks catheter placement at 0000. Lasix gtt place on hold per Dr Freeman.
[2024-10-05 03:05] LABS: % Basophils 0.2 % (0-2); % Lymphocytes 7.8 % (20.5-51.1); % Monocytes 5.3 % (1.7-9.3); % Neutrophils 84.7 % (42.2-75.2); Absolute Immature Granulocytes 0.4 10^3/uL (0-0.05); Absolute Lymphocytes 1.5 10^3/uL (1.2-3.4); Absolute Neutrophils 16.1 10^3/uL (1.4-6.5); Hematocrit 30.2 % (39.0-52.0); Hemoglobin 10.1 g/dL (13.0-18.0); Mean Corp Hgb Conc. 33.4 g/dL (33.0-37.0); Mean Corpuscular Hgb 32.7 pg (27.0-31.0); Mean Corpuscular Volume 97.7 fL (80.0-94.0); Mean Platelet Volume 10.8 fL (7.4-10.4); Nucleated Red Blood Cells % 0.1 % (-); Platelet Count 243 10^3/uL (130-400); Red Blood Cell Count 3.09 10^6/uL (4.70-6.10); Red Cell Dist. Width 13.2 % (11.5-14.5); White Blood Cell Count 18.9 10^3/uL (4.8-10.8)
[2024-10-05 03:18] LABS: Blood Urea Nitrogen 89 mg/dl (9-20); Calcium 8.4 mg/dl (8.4-10.2); Carbon Dioxide 22 mmol/L (22-30); Chloride 103 mmol/L (98-107); Estimated Creatinine Clearance 21 ml/min; Glucose 149 mg/dl (70-99); Potassium 3.7 mmol/L (3.5-5.1); Sodium 139 mmol/L (135-145); eGFR 25.96
--- NOTE | 2024-10-05 04:00 | PTCARENOTE ---
Pt assessment unchanged. will continue to monitor.
--- NOTE | 2024-10-05 07:07 | W.PN.INTV ---
Today's Communication / Plan
Recommendations
Cath results reviewed, PCWP 35, low CO
Cardiogenic shock on dobutamine now, diuresis ongoing per cards
Wean O2 as tolerated
Prednisone taper, less likely AECOPD, can rapidly taper to off
Prognosis overall seems poor given his functional status, he is DNR
Assessment
-
Patient is an 84-year-old male with past medical history of CAD, HTN, HLD presenting to ER with shortness of breath, cough w/ bloody sputum, epigastric pain rating to his back and weakness over the past several days. Had an outpatient CT scan
with suspected contracted gallbladder, ground glass opacities suggesting pneumonia. On arrival to ER, noted to have WBC 16.3, creat 2.4, proBNP >27,000. Admitted for CHF exacerbation, with potential comorbid PNA. We are consulted for eval.
Acute hypoxic resp insufficiency, on 2L, 85% on RA
COPD-FEV1 1.45-58%
Acute HFrEF, proBNP >14036 s/p C 10/04/24- PCWP 35
Cardiogenic shock
GGOs on CT, pleural effusions
Leukocytosis
ALEXA, creat 2.4
Metabolic acidosis
Pulmonary nodules
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
Coronary artery disease s/p CABG x 5
Hyperlipidemia
Hypertension
PVD/PAD w/ claudication - MAGNUS 0.72.
Occluded right SFA proximally/reconstitution of popliteal artery.
Left MAGNUS 0.41 with TBI of 0.28.
Occluded left distal external iliac artery, left SFA proximal occlusion, popliteal artery occlusion.
Follows with Dr Lynch
COPD/mucopurulent chronic bronchitis
Recurrent UTI
CKD 3
Bilateral recurrent inguinal hernia
Plan
Decompensation a combination of CHF, pneumonia, and COPD
Respiratory status about the same
Oxygen supplementation to keep sat >90%
Not bronchospastic on exam at this point
Mucolytic's-on Mucinex
DuoNebs and Pulmicort nebulizers-while in the hospital. Patient usually does not take any inhalers at home-can be discharged on nebulizers until seen in our office.
Continue prednisone taper transitioned on 10/03/2024. Decrease by 10 mg every 48 hours to off.
Aspiration precautions
Prior history of lung disease is not noted--Was never told in the past he has lung disease.
Current smoker, up to 1PPD since he was 11 years old. Has cut down to 1/2 PPD.
Denies history of lung disease in family.
Never seen by taxation accountant in past.
Has a h/o COPD in his chart, but no prior PFTs
Spirometry 10/02/2024-FEV1 1.45 L - 58%, no significant BD response
Cultures so far negative.
Unable to produce sputum
Continue oral anticoagulation send complete 7 days.
HIDA scan 10/01/2024-no evidence for cystic duct or common bile duct obstruction
CHF also suspected given proBNP >23773
Echocardiogram 10/01/2024-EF 35-40%, moderate mitral regurgitation-reduced EF from 2016-EF was 45-50%
CXR/CT obtained indicating GGOs likely more edema, CT AP with effusions
This is less so PNA
Difficult to assess volume status
For right heart catheterization today 10/04/2024--reviewed PCWP 35
Diuresis per cardio, now on dobutamine as well
Monitor renal function, electrolytes, intake/output, lower extremity edema and weight
Replace electrolytes as needed
Cardiology consultation noted-correspondence reviewed
Smoking cessation counseling ongoing
Nicotine patch
DVT prophylaxis-on heparin
Diagnostic Data
Chest X-Ray: 09/30/24- Pneumonia in the left lung. Radiographic follow-up to resolution is recommended. Mild pulmonary vascular congestion with trace bilateral pleural fluid and cardiomegaly.
CT Scan: AP 09/29/24- Lung Bases: There is a moderate right pleural effusion. There is a small pleural effusion. There are moderate groundglass densities in both lower lobes, left greater than right and mildly in the lingula. There are calcified
nodules in the right middle lobe consistent with prior benign granulomatous disease
Echo: 02/15/16- Mildly reduced left ventricular systolic function. Left ventricular ejection fraction is 45-50%. Mild mitral regurgitation. Mild tricuspid regurgitation. Compared to prior study on 02/15/14 the LV EF has improved from 40%.
[facility] 10/04/24- HEMODYNAMICS
RA 19 mmHg
RV 59/13 (EDP 18) mmHg
PA 59/30 (mean 39) mmHg
PCWP 35 (V-waves to 58) mmHg
SaO2 98.0%
SvO2 35.7%
CO/CI 2.4/1.4 L/min/m2
PVR 1.6 Wood Units
SVR 2754 dsc*5
CONCLUSION:
1. Severely elevated biventricular filling pressures
2. Severe post-capillary pulmonary hypertension
3. Severely reduced cardiac output with elevated SVR
4. Leave in swan in the right IJ at 59 cm
-----
Critical Care time 35 mins -- The patient is admitted for acute critical illness for the treatment of vital organ failure and/or prevention of further life-threatening conditions. Total care includes time spent in review of history, physical exam,
medications, hemodynamic/ventilator parameters, laboratory data, imaging and discussion with house staff, pharmacy, respiratory therapy, cable placer, and nursing.
Subjective Dataa
Subjective Data
Date of Service:
Date of Service: October 05, 2024
Chief Complaint: Data Management Analyst Follow Up
Subjective:
s/p cath, doing well
sleepy but arousing, at bedside
Objective Data
Data Reviewed
Vital Signs / I&O / Oxygen:
Vital Signs
Temp Pulse Resp BP Pulse Ox
98.0 F 61 14 117/69 99
10/05/24 04:00 10/05/24 06:48 10/05/24 06:48 10/05/24 06:30 10/05/24 06:48
Intake and Output
10/04/24 10/05/24 10/06/24
06:59 06:59 06:59
Intake Total 720 / 720 222.4 / 222.4
Output Total 1200 / 1200 1275 / 1275
Balance -480 / -480 -1052.6 / -1052.6
SaO2 99
Nasal Cannula flow liters per 4
minute
Physical Exam
General: Comfortable and Other (NAD, thin appearing)
HEENT: Normocephalic, Anicteric, Moist Mucous Membranes and Other (temporal wasting noted)
Cardiovascular: S1-S2 and Regular Rhythm
Respiratory: Crackles and Non-Labored Respirations
GI: Soft, Non Distended and Non Tender
Neurology: No Motor Deficits and Lethargic
Skin: Warm and Dry
Labs/Micro/Reports
Lab Data
10/05/24 02:32
10/05/24 02:32
--- NOTE | 2024-10-05 07:29 | W.PN.HOSP.TC ---
Addendum entered and electronically signed by Lia Orozco MD 10/05/24 13:22:
I saw and evaluated the patient independently. I reviewed the resident�s note and agree with findings and plan as documented by Dr. Shoemaker.
GENERAL: thin, chronically, ill appearing male in no apparent distress
HEENT: NC/AT--Talpa Jose cath right neck
HEART: irreg irreg (monitor NOT reading afib)
LUNGS : clear to auscultation bilaterally
ABDOM: soft, nontender, nondistended, + bowel sounds
EXT: no cyanosis, clubbing, or edema
NEUROLOGIC: grossly intact
: weeks cath with clear urine
Acute hypoxemic respiratory failure Likely due to decompensated HFrEF (and cardiogenic shock with CI<2 and elevated SVR) EF 35% s/p right heart cath-- COPD, pneumonia, aspiration are all possible but much less likely--remains on dobutamine and oral
lasix dosing--cont BiPAP--daily weights, I/Os--toprol on hold--cards considering digoxin if needed for rate control
COPD--PFTs show FEV1 45 to 58%, moderate obstructive disease--apprec pulm--cont steroids with tapering dose (decrease by 10 mg every 48 hours until discontinued)--cont MDIs/nebs
Leukocytosis--likely reactive from steroids
Pneumonia versus pneumonitis--likely not cause of above--now on Augmentin since 10/03 (take for 7 days, last day 10/09)
Epigastric pain--had concern for cholecystitis, HIDA negative--Plavix restarted
ALEXA on CKD stage III--Likely secondary to cardiorenal physiology, limited GDMT--now on oral lasix--follow BUN/creat
Arrhythmia--irreg irreg on exam but not in afib/aflutter--apprec cards
Transaminitis--likely due to cardiogenic shock--repeat--cont statin
Essential Hypertension--Currently holding home amlodipine due to soft pressures during hospital stay
PAD--known high grade L carotid lesions--continue statin and plavix
CAD s/p CABG x 5--Continue statin and plavix.
Renal cyst: will need outpatient MRI
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 FU OP
Anemia of chronic disease--HGB stable mid ten range
Diverticulosis
BPH
Active smoker-cessation counseling
Hypoalbuminemia
Large bowel containing left scrotal hernia
DVT prophylaxis: heparin
CODE STATUS: DNR
Original Note:
Today's Communication/Plan
-
Right IJ Talpa catheter placed on 10/04, patient transition to CVICU. Currently transition to 80 mg oral Lasix. Will start 25 mg 3 times daily hydralazine at 4 PM today.
Assessment / Plan
Assessment / Plan
84 y/o male with pmh of CAD s/p CABG, HLD, HTN, PVD presents to with SOB, cough with bloody sputum, currently status post right heart catheterization.
#Acute hypoxemic respiratory failure
Likely secondary to decompensated HFrEF versus COPD versus pneumonia versus aspiration
Continue use of BiPAP, currently without need of nasal cannula oxygen supplementation
Patient transitioned to ICU and started on dobutamine and given 100 IV lasix with 15 mg/mL drip last night. After drip completion, patient has been put on 80 mg oral Lasix.
Continue to monitor ins and outs, daily weights.
Continue bronchodilators.
#Acute on chronic HFrEF
Echo showed ejection fraction down to 35% from 45% in 2016
R heart cath completed 10/04. Full report below.
Holding Toprol in setting of severely reduced cardiac index, Cards considering addition of digoxin if further rate control needed
Continue to trend BMP
Monitor ins and outs, daily weights
#COPD
PFTs show FEV1 45 to 58%, moderate obstructive disease
Per pulmonology, transitioning to oral steroids (40 mg daily). Will decrease by 10 mg every 48 hours until discontinued
Continue bronchodilators
#Leukocytosis
likely secondary to steroid use
continue to monitor
#Pneumonia versus pneumonitis
Initially on IV Zosyn and azithromycin, transition to Augmentin today for 7 days
#Epigastric pain
Concern for cholecystitis, HIDA negative
Pain resolved, Plavix restarted
#ALEXA on CKD stage III
Likely secondary to cardiorenal physiology, limited GDMT
Completed Lasix drip 100 IV at 15 mg/mL. Currently on 80 mg oral Lasix.
Trend BMP and consider oral diuretics at time of discharge
#Arrhythmia
no known A fib or A flutter
Cardiology on board, R-heart cath today
#Transaminitis
continue statin
#Hypertension
Currently holding home amlodipine due to soft pressures during hospital stay
#PAD
known high grade L carotid lesions
continue statin and plavix
#CAD s/p CABG x 5
Continue statin and plavix.
holding BB
#Renal cyst: will need outpatient MRI
#Infrarenal AAA: 4.1 cm. FU OP
#Anemia of chronic disease
#Diverticulosis
#BPH
#Active smoker-cessation counseling
#Hypoalbuminemia
#Large bowel containing left scrotal hernia
DVT prophylaxis: heparin
Diet: Regular
CODE STATUS: DNR
------
Heart Cath report:
CONCLUSION:
1. Severely elevated biventricular filling pressures
2. Severe post-capillary pulmonary hypertension
3. Severely reduced cardiac output with elevated SVR
4. Leave in swan swen in the right IJ at 59 cm
RECOMMENDATIONS:
1. Hemo-guided management of heart failure
2. Initiate dobutamine @5
3. Lasix 100 mg bolus and start drip at 15 mg/hr
4. Stop metoprolol. If goes back in SVT and rate control required consider digoxin.
Anticipated Discharge: 24 - 48 hours
Subjective/Interval History
-
Date of Service: October 05, 2024
84 y/o male with pmh of CAD s/p CABG, HLD, HTN, PVD presents to with SOB, cough with bloody sputum, currently status post right heart catheterization. Overnight he reports no acute events. Patient is currently in the CVICU. He reports no
chest pain, shortness of breath, abdominal pain, nausea, or headaches.
Objective Data
-
Labs:
Laboratory Results
10/05/24
02:32
WBC 18.9 H
Hgb 10.1 L
Hct 30.2 L
Plt Count 243
Sodium 139
Potassium 3.7
Chloride 103
Carbon Dioxide 22
BUN 89 H
Creatinine 2.4 H
Glucose 149 H
Calcium 8.4
Vital Signs:
Vital Signs
Temp Pulse Resp BP Pulse Ox
97.8 F 61 13 123/81 99
10/05/24 07:00 10/05/24 07:20 10/05/24 07:20 10/05/24 07:00 10/05/24 07:20
I&O
10/04/24 10/05/24 10/06/24
06:59 06:59 06:59
Intake Total 720 / 720 222.4 / 242.3 19.9 / 19.9
Output Total 1200 / 1200 1275 / 1625 350 / 350
Balance -480 / -480 -1052.6 / -1382.7 -330.1 / -330.1
Review of Systems
-
History Source: Patient
Constitutional: Reports No Symptoms
Respiratory: Reports No Symptoms
Cardiac: Reports No Symptoms
Abdomen/GI: Reports No Symptoms
Genitourinary: Reports No Symptoms
Musculoskeletal: Reports No Symptoms
Physical Exam
-
General: Well Developed, Conversant, Cachectic and Other (Elderly)
HEENT: Normocephalic and Atraumatic
Respiratory: Clear to Auscultation
Cardiac: S1/S2 and Irregular Rhythm
GI: Soft, Nontender, Nondistended and Normal Bowel Sounds
Musculoskeletal: No Clubbing, No Cyanosis and No Edema
Skin: Warm and Dry
Psych: Calm
Data Reviewed
-
Diagnostic Radiology: Report Reviewed by me
Labs: Labs Reviewed by me and Discussed with Physician
Old Records: Reviewed
[2024-10-05] MEDS: DUONEB 3 ML INH ×4 (07:52→19:31)
[2024-10-05] MEDS: PULMICORT 0.5 MG INH ×2 (07:52→19:30)
--- NOTE | 2024-10-05 08:00 | W.PN.CD ---
Today's Communication / Plan
-
cont. dobutamine
bolus dose lasix for goal negative 1L
start hydral/isosorbide for afterload reduction
replete K
Impression / Plan
-
84-year-old male with past medical history of CAD status post CABG 2004, dyslipidemia, hypertension, peripheral arterial disease who is here with SOB and weakness, found to have worsened EF and severely reduced CO with elevated filling pressures on
RHC. Now transferred to CVICU with leave in swan.
Cards: Dr Avila.
# acute on choronic decompensated systolic heart failure
# cardiogenic shock
-EF 35-40%, down from 45-50% in 2016
-RHC with cardiogenic shock, high SVR, severely elevated filling pressures
-swan left in right IJ and patient transferred to ICU
-dobutamine started at 5 and given 100 IV lasix with 15 mg/mL drip started
-several liters negative overnight, filling pressures improved (CVP 5, PCWP 20 with v-waves to 40)
-SVR still high and CO low despite decongestion - need to target afterload reduction today: will start hydral/isosorbide, consider coreg once index improves and able to wean dobutamine
# shortness of breath
# hypoxic respiratory failure
-multifactorial, CHF as above, also being treated for PNA and COPD
# ALEXA on CKD3b vs new CKD4
-likely cardiorenal in setting of decompensated heart failure
-improving with dobutamine and aggressive diuresis
#SVR
-on tele, having brief runs of likely SVT with aberrancy, and also PVC's
-Toprol XL (holding in setting of shock, consider dig if needs rate control for SVT vs. amio for PVC suppression)
# CAD s.p CABG Elevated troponin peak 0.067 (acute non-ischemic myocardial injury in setting of PNA, ALEXA)
-on Plavix as outpatient
# Dyslipidemia
-cont statin
PNA w/ hypoxic respiratory failure
-per primary
Elevated LFTs
-HIDA scan per primary
PAD
-on Plavix
Smoker
-encouraged cessation
Subjective: patient feeling better, per family, mentation dramatically improved after initiation of dobutmaine; patient wedged at bedside and full hemodynamic assessment performed; nursing, patient and family, and primary team updated on plan
Physical Exam
Vital Signs/Labs
Vital Signs
Temp Pulse Resp BP Pulse Ox
36.6 C 83 15 123/81 100
10/05/24 07:00 10/05/24 07:57 10/05/24 07:57 10/05/24 07:00 10/05/24 07:57
10/04/24 10/05/24 10/06/24
06:59 06:59 06:59
Actual Weight 66.224 kg 64.4 kg
10/05/24 02:32
10/05/24 02:32
Magnesium 2.6 mg/dl (1.6-2.3) H 10/03/24 04:39
09/30/24 09/30/24
14:26 14:55
[id number]-I-Cndgjxpfbyz Pept Cancelled > [id number]
Physical Exam
Constitutional: No acute distress
Cardiovascular: Rhythm & rate is regular, Pedal edema is absent, JVD pressure is normal, Systolic murmur absent and Diastolic murmur absent
Respiratory: Respiratory effort normal, Lungs clear to auscul. and Wheeze Absent
Neuro/Psych: AO x 3
Data Reviewed
-
Date of Service: October 05, 2024
Medical Decision Making: Reviewed Test Results
Echo: Tracing Personally Visualized and interpreted and Report Reviewed by me
Labs: Labs Reviewed by me
Critical Care Time (in minutes): 35
Total Time Spent with Patient (in minutes): 20
[2024-10-05 08:24] LABS: Mixed Venous O2 Saturation 59.4 %
[2024-10-05] MEDS: HEPARIN 5000 UNITS SC ×3 (08:30→23:46)
[2024-10-05] MEDS: MUCINEX 600 MG PO ×2 (08:31→19:08)
[2024-10-05] MEDS: NICODERM TRANSDERMAL 14 MG TRANSDERM (08:31)
[2024-10-05] MEDS: DELTASONE 40 MG PO (08:31)
[2024-10-05] MEDS: OSCAL CAL 500 500 MG PO (08:31)
[2024-10-05] MEDS: AUGMENTIN 500 MG/125 MG 1 TABLET PO ×2 (08:31→19:08)
[2024-10-05] MEDS: PLAVIX 75 MG PO (08:31)
[2024-10-05] MEDS: DESENEX/MITRAZOL/ZEASORB 1 APPLIC TOPICAL ×2 (08:34→19:09)
--- NOTE | 2024-10-05 08:43 | W.PN.UPDATE ---
Update Note
Progress Note Update
There is a notable discrepancy noted between thermodilution and Miguelito hemos. Thermos continue to show severely depressed index (1.5 range). Miguelito today with PA sat 59% giving estimated CI of 2.3 (improved from 1.4 in the prosthetic lab technician prior to dobutamine
initiation). Miguelito hemos are more consistent with his overall clinical picture (decongestion, improved renal function, improved mentation) so we will track these BID going forward. Plan to wean dobutamine this evening if afterload improves with
hydral/isosorbide and index remains stable.
--- NOTE | 2024-10-05 09:09 | PTCARENOTE ---
Received pt from steward/stewardess night RN; pt AAOx3 and resting comfortably in bed; NSR Prolonged QT and PVCs, VSS; RIJ Cordis, Bowman floated to 59 and PIV, all lines leveled and zeroed; Dobutamine infusing see flow sheet for details; Lungs diminished with
fine crackles at bases; hypoactive bowel sounds; Carter Catheter draining clear yellow urine; palpable radial pulses and weak lower extremity DP; +1 scrotal edema; see flow sheet for details.
[2024-10-05] MEDS: LASIX 80 MG PO (09:37)
[2024-10-05] MEDS: KCL 40 MEQ PO (09:37)
--- NOTE | 2024-10-05 10:17 | PTOTSP ---
ST Re-Evaluation/Follow-Up
Pt currently presents with clinical symptoms of mild oropharyngeal dysphagia and esophageal dysfunction characterized by prolonged mastication and bolus formation, inconsistent airway protection with thin liquids, and intermittent
eructation/hiccupping with ingestion of liquids.
Recommendations:
- DOWNGRADE pt's diet to SOFT BITE SIZED SOLIDS and continue with THIN LIQUIDS with SINGLE SIPS ONLY; meds whole in puree.
- Aspiration precautions: HOB upright as often as possible; encourage pt to take small bites; encourage pt to take small, single sips; alternate bites/sips; encourage pt to eat/drink slowly; pt must use denture adhesive if he opts to wear his
dentures.
- CERTIFIED TEACHER ASSISTANT to f/u re: diet tolerance and to determine if pt would benefit from an instrumental swallow study.
--- NOTE | 2024-10-05 10:18 | CM ---
Reviewed chart. Mr. Cervantes was transferred to CVICU. Met with and Mrs. Cervantes and their granddaughter to review discharge plans. Spouse states prior to admission he resides with her in a one story home with a couple of steps to enter. Prior
to admission he was able to ambulate with holding on to the bird or furniture. He has a walker and single point cane that he does not use. We reviewed the options SNF and VNA Services. Spouse states she does not think he will go to SNF/Rehab.
Telephone call to Susannah Espinoza to check on status of referral. Left message. Medical work-up in progress. The discharge plan is to return home with his spouse and VNA Services versus SNF/Rehab. when medically stable.
--- NOTE | 2024-10-05 12:23 | PTCARENOTE ---
Pt having frequent PVCs/ectopy on monitor; Dr Freeman updated and Dobutamine decreased to 2.5 mcg/kg/min; assessment unchanged; pt resting comfortably in bed with family at bedside.
[2024-10-05] MEDS: DOBUTREX 500 MG 250 IV (12:48)
--- NOTE | 2024-10-05 16:33 | PTCARENOTE ---
Pt resting comfortably in chair; NSR PVCs on monitor and VSS; Dobutamine infusing see flow sheet for details; assessment unchanged; family at bedside.
[2024-10-05] MEDS: APRESOLINE 25 MG PO ×2 (17:00→23:48)
[2024-10-05] MEDS: ISORDIL 10 MG PO ×2 (17:01→23:48)
[2024-10-05] MEDS: LIPITOR 20 MG PO (17:01)
--- NOTE | 2024-10-05 20:00 | PTCARENOTE ---
Received pt from [facility]. pt resting comfortably in bed with family at bedside. pt is AAOx4, pt is also [place]. pt is 100% A paced with PPM, VSS. heart sounds audible, radial and DP pulses palpable, +3 scrotal edema. lungs are diminished at b/l bases
and crackles throughout, pt is currently be treated for pneumonia, spo2 97% on 2 LNC. hypoactive BS x4 quadrants, abdomen soft non tender, pt is being followed by speech, diet changed to chop. pt voiding clear yellow urine via weeks catheter. right
brachial artery cath site dressing clean dry and intact. right IJ cordis, swan@ 59, and PVI all maintained , leveled, and zeroed. dobutamine infusing. call bates within reach. ongoing monitoring.
[2024-10-05 21:02] LABS: Mixed Venous O2 Saturation 62.6 %
--- NOTE | 2024-10-05 23:23 | PTCARENOTE ---
Pt assessment unchanged. NSR on monitor with frequent PVC, VSS. MVO2 lab drawn- 62.6, CI improving 2.03 @2205. pt washed with CHG, weeks care provided. call bates within reach. will continue to monitor.
[2024-10-06 05:08] LABS: % Basophils 0.2 % (0-2); % Immature Granulocytes 2.8 % (0-0.5); % Monocytes 4.9 % (1.7-9.3); % Neutrophils 84.1 % (42.2-75.2); Absolute Immature Granulocytes 0.6 10^3/uL (0-0.05); Absolute Lymphocytes 1.6 10^3/uL (1.2-3.4); Absolute Neutrophils 16.4 10^3/uL (1.4-6.5); Hematocrit 28.4 % (39.0-52.0); Hemoglobin 9.9 g/dL (13.0-18.0); Mean Corp Hgb Conc. 34.9 g/dL (33.0-37.0); Mean Corpuscular Hgb 34.5 pg (27.0-31.0); Mean Platelet Volume 10.7 fL (7.4-10.4); Nucleated Red Blood Cells % 0 % (-); Platelet Count 230 10^3/uL (130-400); Red Blood Cell Count 2.87 10^6/uL (4.70-6.10); Red Cell Dist. Width 13.1 % (11.5-14.5); White Blood Cell Count 19.5 10^3/uL (4.8-10.8)
[2024-10-06 05:15] LABS: ALT (SGPT) 123 U/L (0-50); AST (SGOT) 38 U/L (17-59); Albumin 2.8 g/dl (3.5-5.0); Alkaline Phosphatase 146 U/L (38-126); Blood Urea Nitrogen 84 mg/dl (9-20); Calcium 8.8 mg/dl (8.4-10.2); Carbon Dioxide 26 mmol/L (22-30); Chloride 99 mmol/L (98-107); Estimated Creatinine Clearance 22 ml/min; Glucose 103 mg/dl (70-99); Magnesium 2.3 mg/dl (1.6-2.3); Potassium 3.7 mmol/L (3.5-5.1); Sodium 136 mmol/L (135-145); Total Bilirubin 0.9 mg/dl (0.2-1.3); Total Protein 5.1 g/dl (6.3-8.2); eGFR 27.32
[2024-10-06 06:00] VITALS: BP 125/71; BMI 22.6
--- NOTE | 2024-10-06 07:09 | W.PN.INTV ---
Today's Communication / Plan
Recommendations
PA Rupture noted, severe acute hemoptysis
Became unresponsive, he is DNR, no intubation performed
Morphine given at bedside, son aware and present
Reviewed plan of care with team
Keep comfortable
Assessment
-
Patient is an 84-year-old male with past medical history of CAD, HTN, HLD presenting to ER with shortness of breath, cough w/ bloody sputum, epigastric pain rating to his back and weakness over the past several days. Had an outpatient CT scan
with suspected contracted gallbladder, ground glass opacities suggesting pneumonia. On arrival to ER, noted to have WBC 16.3, creat 2.4, proBNP >27,000. Admitted for CHF exacerbation, with potential comorbid PNA. We are consulted for eval.
Acute hypoxic resp insufficiency, on 2L, 85% on RA
COPD-FEV1 1.45-58%
Acute HFrEF, proBNP >32140 s/p [facility] 10/04/24- PCWP 35
Cardiogenic shock
GGOs on CT, pleural effusions
Leukocytosis
ALEXA, creat 2.4
Metabolic acidosis
Pulmonary nodules
PA Rupture
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
Coronary artery disease s/p CABG x 5
Hyperlipidemia
Hypertension
PVD/PAD w/ claudication - MAGNUS 0.72.
Occluded right SFA proximally/reconstitution of popliteal artery.
Left MAGNUS 0.41 with TBI of 0.28.
Occluded left distal external iliac artery, left SFA proximal occlusion, popliteal artery occlusion.
Follows with Dr Lynch
COPD/mucopurulent chronic bronchitis
Recurrent UTI
CKD 3
Bilateral recurrent inguinal hernia
Plan
Severe hemoptysis on my examination developed
PA rupture likely from cath
Patient is DNR, became unresponsive
Morphine given, son at bedside
Decompensation a combination of CHF, pneumonia, and COPD
Had been 99% on 2L
Mucolytic's-on Mucinex
DuoNebs and Pulmicort nebulizers-while in the hospital.
Aspiration precautions
Prior history of lung disease is not noted--Was never told in the past he has lung disease.
Current smoker, up to 1PPD since he was 11 years old. Has cut down to 1/2 PPD.
Denies history of lung disease in family.
Never seen by engineering consultant in past.
Has a h/o COPD in his chart, but no prior PFTs
Spirometry 10/02/2024-FEV1 1.45 L - 58%, no significant BD response
Cultures so far negative.
Unable to produce sputum
Continue oral anticoagulation send complete 7 days.
HIDA scan 10/01/2024-no evidence for cystic duct or common bile duct obstruction
CHF also suspected given proBNP >84164
Echocardiogram 10/01/2024-EF 35-40%, moderate mitral regurgitation-reduced EF from 2016-EF was 45-50%
CXR/CT obtained indicating GGOs likely more edema, CT AP with effusions
This is less so PNA
Difficult to assess volume status
For right heart catheterization today 10/04/2024--reviewed PCWP 35
Diuresis per cardio, now on dobutamine as well
Monitor renal function, electrolytes, intake/output, lower extremity edema and weight
Replace electrolytes as needed
Cardiology consultation noted-correspondence reviewed
Smoking cessation counseling ongoing
Nicotine patch
DVT prophylaxis-on heparin
Diagnostic Data
Chest X-Ray: 09/30/24- Pneumonia in the left lung. Radiographic follow-up to resolution is recommended. Mild pulmonary vascular congestion with trace bilateral pleural fluid and cardiomegaly.
CT Scan: AP 09/29/24- Lung Bases: There is a moderate right pleural effusion. There is a small pleural effusion. There are moderate groundglass densities in both lower lobes, left greater than right and mildly in the lingula. There are calcified
nodules in the right middle lobe consistent with prior benign granulomatous disease
Echo: 02/15/16- Mildly reduced left ventricular systolic function. Left ventricular ejection fraction is 45-50%. Mild mitral regurgitation. Mild tricuspid regurgitation. Compared to prior study on 02/15/14 the LV EF has improved from 40%.
[facility] 10/04/24- HEMODYNAMICS
RA 19 mmHg
RV 59/13 (EDP 18) mmHg
PA 59/30 (mean 39) mmHg
PCWP 35 (V-waves to 58) mmHg
SaO2 98.0%
SvO2 35.7%
CO/CI 2.4/1.4 L/min/m2
PVR 1.6 Wood Units
SVR 2754 dsc*5
CONCLUSION:
1. Severely elevated biventricular filling pressures
2. Severe post-capillary pulmonary hypertension
3. Severely reduced cardiac output with elevated SVR
4. Leave in swan in the right IJ at 59 cm
-----
Critical Care time 55 mins -- The patient is admitted for acute critical illness for the treatment of vital organ failure and/or prevention of further life-threatening conditions. Total care includes time spent in review of history, physical exam,
medications, hemodynamic/ventilator parameters, laboratory data, imaging and discussion with house staff, pharmacy, respiratory therapy, wood planer, and nursing.
Subjective Dataa
Subjective Data
Date of Service:
Date of Service: October 06, 2024
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
Subjective:
No acute events ON, remains with swan in place
this AM, following wedging of PA cath, patient developed abrupt hemoptysis
he is DNR, placed on morphine after patient became unresponsive
son at bedside, care team also present
Objective Data
Data Reviewed
Vital Signs / I&O / Oxygen:
Vital Signs
Temp Pulse Resp BP Pulse Ox
97.9 F 64 19 125/71 97
10/06/24 04:00 10/06/24 06:48 10/06/24 06:48 10/06/24 06:00 10/06/24 06:48
Intake and Output
10/05/24 10/06/24 10/07/24
06:59 06:59 06:59
Intake Total 222.4 / 242.3 582.7 / 582.7
Output Total 1275 / 1625 2630 / 2630
Balance -1052.6 / -1382.7 -2047.3 / -2047.3
SaO2 97
Nasal Cannula flow liters per 2
minute
Physical Exam
General: Comfortable and Other (NAD, thin appearing)
HEENT: Normocephalic, Anicteric, Moist Mucous Membranes and Other (temporal wasting noted)
Cardiovascular: S1-S2 and Regular Rhythm
Respiratory: Crackles and Non-Labored Respirations
GI: Soft, Non Distended and Non Tender
Neurology: Awake, Alert, Oriented and No Motor Deficits
Skin: Warm and Dry
Labs/Micro/Reports
Lab Data
10/06/24 04:36
10/06/24 04:36
[2024-10-06] MEDS: PULMICORT 0.5 MG INH (07:12)
[2024-10-06] MEDS: DUONEB 3 ML INH (07:12)
[2024-10-06] MEDS: MORPHINE SULFATE 2 MG IV (07:50)
--- NOTE | 2024-10-06 08:04 | W.PN.UPDATE ---
Update Note
Progress Note Update
This morning at around 7:30 AM I was obtaining bedside hemodynamics on Mr. Cervantes. [place] waveform was noted to be blunted and improved after flushing, with a clear PA waveform noted. The balloon was inflated and the swan advanced until a wedge
waveform was noted on the monitor, with PCWP of 18 mmHg and large v-waves. The balloon was then deflated and returned to its prior position. Wedge was remeasured in the same manner for verification. Shortly thereafter, the patient was noted to have
moderate volume hemoptysis. This was immediately recognized as a possible PA rupture. Anesthesia was paged STAT and the patient kept on his right side with suction performed to help protect the airway. While preparing to intubate, the family was
contacted given the patient's DNR status. The patient was becoming hypoxic and bradycardia and clearly would need intubation to survive. The family (son at bedside, and other family members via phone) verified that the patient would not want
intubation or other heroic resuscitation. He was given morphine for air hunger and remained comfortable. He after about 10 minutes with family at bedside, at 7:55 AM. It was an honor taking care of Mr. Cervantes.
--- NOTE | 2024-10-06 08:43 | PTCARENOTE ---
At 0730 Dr Freeman at bedside doing a procedure; pt began to vomit bright red blood and pulse Ox decreased; respiratory at bedside along with RN; Anesthesia called for possible intubation; son at bedside, reinforced DNR status with no intubation;
morphine given for comfort.
--- NOTE | 2024-10-06 09:05 | PTCARENOTE ---
[facility] called and pt not selected due to age.
--- NOTE | 2024-10-06 12:25 | W.PN.UPDATE ---
Update Note
Progress Note Update
This morning during catheter manipulation, pulmonary artery likely ruptured causing severe acute hemoptysis. Patient became unresponsive and family reiterated DNR status, not wanting intubation. Patient was given morphine for comfort. Son at
bedside holding father's hand. Patient passed at 7:55 AM on 11/05/2024. It was a pleasure being part of Mr. Cervantes's care team during his stay. Family was notified that if they need any additional support or have any questions do not hesitate to
reach out to the medical team.
--- NOTE | 2024-10-06 13:29 | PTCARENOTE ---
Pt engine monitor removed, Carter Catheter, PIV, Beeler Jose and RIJ Cordis removed; pt transferred to [facility] via stretcher; family took pt belongings.
--- NOTE | 2024-10-08 13:54 | W.PN.DEATH ---
Pronouncement of
-
During [place] catheter manipulation, pulmonary artery likely ruptured causing severe acute hemoptysis. Patient became unresponsive and family reiterated DNR status, not wanting intubation. Patient was given morphine for comfort. Patient passed at
7:55 AM on 10/06/2024. It was a pleasure being part of Mr. Cervantes's care team during his stay. Family was notified that if they need any additional support or have any questions do not hesitate to reach out to the medical team.
Time of : 07:55
Date of : 10/06/24
Cause of : severe acute hemoptysis
Family Notified: Yes
== END 2024-10-06 07:55 | disposition expired | DRG 286 ==
LOC: CVICU 19:03
PROVIDERS: Physician Assistant; Student in an Organized Health Care Education/Training Program; Urology; ADMITTING PHYSICIAN Hospitalist; ATTENDING PHYSICIAN Internal Medicine; CONSULT PHYSICIAN Internal Medicine Cardiovascular Disease; EMERGENCY PHYSICIAN Emergency Medicine; FAMILY PHYSICIAN Family Medicine; OTHER PHYSICIAN Internal Medicine
PROC: 5A09357 Assistance with Respiratory Ventilation, Less than 24 Consecutive Hours, Continuous Positive Airway Pressure (ICD-10-PCS; 2024-09-30)
PROC: 4A023N6 Measurement of Cardiac Sampling and Pressure, Right Heart, Percutaneous Approach (ICD-10-PCS; 2024-10-04)
DX: I13.0 Hypertensive heart and chronic kidney disease with heart failure and stage 1 through stage 4 chronic kidney disease, or unspecified chronic kidney disease (principal); I50.23 Acute on chronic systolic (congestive) heart failure; J18.9 Pneumonia, unspecified organism; J96.01 Acute respiratory failure with hypoxia; N17.9 Acute kidney failure, unspecified; J44.0 Chronic obstructive pulmonary disease with (acute) lower respiratory infection; J44.1 Chronic obstructive pulmonary disease with (acute) exacerbation; E87.20 Acidosis, unspecified; I97.51 Accidental puncture and laceration of a circulatory system organ or structure during a circulatory system procedure; R04.2 Hemoptysis; I5A Non-ischemic myocardial injury (non-traumatic); Z66 Do not resuscitate; E78.00 Pure hypercholesterolemia, unspecified; I25.10 Atherosclerotic heart disease of native coronary artery without angina pectoris; F17.210 Nicotine dependence, cigarettes, uncomplicated; D63.1 Anemia in chronic kidney disease; I71.43 Infrarenal abdominal aortic aneurysm, without rupture; I65.22 Occlusion and stenosis of left carotid artery; N28.1 Cyst of kidney, acquired; N40.0 Benign prostatic hyperplasia without lower urinary tract symptoms; I70.201 Unspecified atherosclerosis of native arteries of extremities, right leg; E88.09 Other disorders of plasma-protein metabolism, not elsewhere classified; R57.0 Cardiogenic shock; K40.20 Bilateral inguinal hernia, without obstruction or gangrene, not specified as recurrent; K57.30 Diverticulosis of large intestine without perforation or abscess without bleeding; N18.32 Chronic kidney disease, stage 3b; I25.5 Ischemic cardiomyopathy; I27.29 Other secondary pulmonary hypertension; J20.9 Acute bronchitis, unspecified; I28.8 Other diseases of pulmonary vessels; Y84.0 Cardiac catheterization as the cause of abnormal reaction of the patient, or of later complication, without mention of misadventure at the time of the procedure; Z11.52 Encounter for screening for COVID-19; Z79.02 Long term (current) use of antithrombotics/antiplatelets; Z79.899 Other long term (current) drug therapy; Z95.1 Presence of aortocoronary bypass graft; Z87.440 Personal history of urinary (tract) infections
CPT/HCPCS: 71046; 74177; 76700; 78226; 80048; 80053; 82248; 82607; 82728; 82805; 82810; 83540; 83550; 83605; 83735; 83880; 84145; 84443; 84484; 85025; 85027; 86850; 86900; 86901; 87502; 87811; 92526; 92610; 93005; 93306; 93451; 93503; 94060; 94640; 94660; 96361; 96365; 96375; 97163; 97164; 97167; 97530; 97535; 99285; 99406; A9537; C1769; C1894; Q9967